=== PATIENT | male | born 1975 | race Caucasian/White ===

== ENCOUNTER 2017-08-26 18:54 | Emergency (ER) | payer OTHER ==
[~2017-08-26] VITALS: Ht 198.1 cm; Wt 101.5 kg
[2017-08-26 18:54] VITALS: TEMP 36.5; Ht 198.1 cm; Wt 101.5 kg
[~2017-08-26 18:54] MED LIST: ADAL40KI SC
[2017-08-26 19:52] LABS: BASO % 0.2 %; BASO ABS # 0.02 K/uL (0-0.2); EOS % 1.5 %; EOS ABS # 0.13 K/uL (0-0.5); HEMATOCRIT 44.3 % (42-52); HEMOGLOBIN 15.4 g/dL (14.0-18.0); IG# 0.01 K/uL (0.00-0.02); LYMPH ABS # 3.36 K/uL (1.2-3.4); MEAN CELL VOLUME 86.7 fL (80-100); MEAN CORPUSCULAR HEMOGLOBIN 30.1 pg (25-34); MEAN CORPUSCULAR HGB CONC 34.8 g/dl (32-36); MEAN PLATELET VOLUME 10.7 fL (7.4-10.4); MONO % 10.6 %; MONO ABS # 0.89 K/uL (0.11-0.59); NEUT % 47.6 %; NEUT ABS # 3.98 K/uL (1.4-6.5); PLATELET COUNT 199 K/uL (130-400); RED CELL DISTRIBUTION WIDTH SD 41.8 fL (36.4-46.3); WHITE BLOOD COUNT 8.39 K/uL (4.8-10.8)
--- NOTE | 2017-08-26 20:06 | DIAGNOSTIC IMAGING REPORT ---
CHEST 1 VW FRONT-NOT PORTABLE CLINICAL HISTORY: Atypical chest pain COMPARISON STUDY: 07/24/2011 FINDINGS: The cardiac and mediastinal contours are normal. There is no evidence of focal pulmonary consolidation. There is no evidence of failure. No pleural effusions are visualized.[ IMPRESSION: No active disease in the chest. Electronically signed by: Houston Saini M.D. 08/26/2017 8:04 PM Dictated Date/Time: 08/26/2017 8:04 PM
--- NOTE | 2017-08-26 20:07 | DIAGNOSTIC IMAGING REPORT ---
L HIP UNILATERAL 2 VIEWS CLINICAL HISTORY: left hip pain COMPARISON: None. DISCUSSION: No acute fractures are visualized. There are moderate osteophytic changes with acetabular spurring. There are 2 nonspecific left pelvic basin calcifications. IMPRESSION: 1. No acute fractures 2. Mild degenerative change 3. Nonspecific left pelvic basin calcifications. In the absence of ureteral colic these likely represent phleboliths Electronically signed by: Houston Saini M.D. 08/26/2017 8:05 PM Dictated Date/Time: 08/26/2017 8:04 PM
[2017-08-26 20:20] LABS: ALKALINE PHOSPHATASE 68 U/L (45-117); ALT/SGPT 26 U/L (12-78); AST/SGOT 17 U/L (15-37); BLOOD UREA NITROGEN 19 mg/dl (7-18); CARBON DIOXIDE 30 mmol/L (21-32); CREATININE 1.11 mg/dl (0.60-1.40); GLUCOSE 83 mg/dl (70-99); POTASSIUM 4.3 mmol/L (3.5-5.1); SODIUM 140 mmol/L (136-145); TOTAL PROTEIN 7.4 gm/dl (6.4-8.2)
[2017-08-26 20:39] VITALS: BP 117/66
--- NOTE | 2017-08-26 20:58 | EMERGENCY ROOM VISIT NOTE ---
History First contact with patient: 19:10 Chief Complaint: CHEST PAIN Stated Complaint: CHEST PAIN Nursing Triage Summary: Pt complains of intermittent chest pain for months. Pt denies anything different today but wants to get it checked out. Pt also wants to get his left hip checked out. Denies any injury. History of Present Illness The patient is a 42 year old male who presents to the Emergency Room with multiple complaints. The patient states that he has had left-sided nosebleeds for "a while." He states that these occur in the morning but stop once he blows his nose. He did have one nosebleed in the afternoon. He states this is a very small amount of blood when it occurs. The patient also states he has had pain in his left hip for the past 3 weeks. This morning it was a burning pain and he rates the discomfort a 5/10. The pain is worsened with movements but is okay with walking. 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 He has tried stretching but this did not help his pain. Additionally, the patient states he has had chest pains for the past 5 months. These occur a few times every day. The pain is located across the center of his chest and he is unable to describe the quality of the pain. The patient states the pain is mild and usually lasts for a few seconds. He does have a history of a collapsed lung 15-20 years ago and states he needed a chest tube for this. He states this occurred spontaneously. He denies any cardiac history. He is a smoker. He denies recent travel or prolonged immobilization. He does report a family history of heart disease in his mother at age 60. The patient takes medication for his psoriasis but is otherwise healthy. He denies fever/chills, cough or shortness of breath. Review of Systems A complete 10 point review of systems was reviewed with the patient with pertinent positives and negatives as per history of present illness. All else were negative. Past Medical/Surgical History Medical Problems: (1) Psoriasis Family History Heart disease Social History Smoking Status: Current Every Day Smoker Current/Historical Medications Scheduled Adalimumab (Humira Pen), 0.8 ML SC [id number] Multiple Vitamin (Multivitamin), 1 TAB PO DAILY Physical Exam Vital Signs Date Time Temp Pulse Resp B/P (MAP) Pulse Ox O2 Delivery O2 Flow Rate FiO2 08/26/17 21:05 70 16 95 08/26/17 20:39 77 14 117/66 96 Room Air 08/26/17 18:54 36.5 82 16 139/86 96 Room Air Physical Exam VITALS: Vitals are noted on the nurse's note and reviewed by myself. Vital signs stable. GENERAL: This is a 42-year-old male, in no acute distress, nondiaphoretic, well- developed well-nourished. SKIN: The skin was without rashes. EARS: External auditory canals clear, tympanic membranes pearly danielson without erythema or effusion bilaterally. EYES: Pupils equal round and reactive to light and accommodation. NOSE: Nasal mucosa is slightly inflamed bilaterally, left greater than right. MOUTH: Mucous membranes moist. NECK: Supple without nuchal rigidity. HEART: Regular rate and rhythm without murmurs gallops or rubs. LUNGS: Clear to auscultation bilaterally without wheezes, rales or rhonchi. ABDOMEN: Positive bowel sounds x 4. Soft, nontender to palpation. MUSCULOSKELETAL: Full range of motion of the left hip. No significant tenderness to palpation of the left hip. NEURO: Patient was alert and oriented to person place and time. Medical Decision & Procedures ER Provider Diagnostic Interpretation: CHEST 1 VW FRONT-NOT PORTABLE FINDINGS: The cardiac and mediastinal contours are normal. There is no evidence of focal pulmonary consolidation. There is no evidence of failure. No pleural effusions are visualized.[ IMPRESSION: No active disease in the chest. L HIP UNILATERAL 2 VIEWS DISCUSSION: No acute fractures are visualized. There are moderate osteophytic changes with acetabular spurring. There are 2 nonspecific left pelvic basin calcifications. IMPRESSION: 1. No acute fractures 2. Mild degenerative change 3. Nonspecific left pelvic basin calcifications. In the absence of ureteral colic these likely represent phleboliths Laboratory Results 08/26/17 19:36 Red Blood Count 5.11, Mean Corpuscular Volume 86.7, Mean Corpuscular Hemoglobin 30.1, Mean Corpuscular Hemoglobin Concent 34.8, Mean Platelet Volume 10.7, Neutrophils (%) (Auto) 47.6, Lymphocytes (%) (Auto) 40.0, Monocytes (%) (Auto) 10.6, Eosinophils (%) (Auto) 1.5, Basophils (%) (Auto) 0.2, Neutrophils # (Auto ) 3.98, Lymphocytes # (Auto) 3.36, Monocytes # (Auto) 0.89, Eosinophils # (Auto ) 0.13, Basophils # (Auto) 0.02 08/26/17 19:36 Test 08/26/17 19:36 White Blood Count 8.39 K/uL (4.8-10.8) Red Blood Count 5.11 M/uL (4.7-6.1) Hemoglobin 15.4 g/dL (14.0-18.0) Hematocrit 44.3 % (42-52) Mean Corpuscular Volume 86.7 fL (80-100) Mean Corpuscular Hemoglobin 30.1 pg (25-34) Mean Corpuscular Hemoglobin Concent 34.8 g/dl (32-36) Platelet Count 199 K/uL (130-400) Mean Platelet Volume 10.7 fL (7.4-10.4) Neutrophils (%) (Auto) 47.6 % Lymphocytes (%) (Auto) 40.0 % Monocytes (%) (Auto) 10.6 % Eosinophils (%) (Auto) 1.5 % Basophils (%) (Auto) 0.2 % Neutrophils # (Auto) 3.98 K/uL (1.4-6.5) Lymphocytes # (Auto) 3.36 K/uL (1.2-3.4) Monocytes # (Auto) 0.89 K/uL (0.11-0.59) Eosinophils # (Auto) 0.13 K/uL (0-0.5) Basophils # (Auto) 0.02 K/uL (0-0.2) RDW Standard Deviation 41.8 fL (36.4-46.3) RDW Coefficient of Variation 13.0 % (11.5-14.5) Immature Granulocyte % (Auto) 0.1 % Immature Granulocyte # (Auto) 0.01 K/uL (0.00-0.02) Anion Gap 5.0 mmol/L (3-11) Est Creatinine Clear Calc Drug Dose 114.3 ml/min Estimated GFR () 95.8 Estimated GFR (Non- 82.6 BUN/Creatinine Ratio 17.1 (10-20) Calcium Level 9.0 mg/dl (8.5-10.1) Total Bilirubin 0.4 mg/dl (0.2-1) Aspartate Amino Transf (AST/SGOT) 17 U/L (15-37) Alanine Aminotransferase (ALT/SGPT) 26 U/L (12-78) Alkaline Phosphatase 68 U/L (45-117) Troponin I < 0.015 ng/ml (0-0.045) Total Protein 7.4 gm/dl (6.4-8.2) Albumin 4.0 gm/dl (3.4-5.0) Globulin 3.4 gm/dl (2.5-4.0) Albumin/Globulin Ratio 1.2 (0.9-2) Thyroid Stimulating Hormone (TSH) 0.612 uIu/ml (0.300-4.500) ECG Per My Interpretation Indication: chest pain Rate (beats per minute): 70 Rhythm: sinus with SA Findings: no acute ischemic change, no ectopy Change: no significant change Medical Decision Differential diagnosis includes acute coronary syndrome, pulmonary embolism, pneumothorax, pericarditis, myocarditis, endocarditis, anxiety, musculoskeletal pain, GERD, costochondritis, pneumonia, trochanteric bursitis, arthritis, tendinitis, among others. The patient is a 42-year-old male who presents today complaining of pain intermittent chest pain, daily nosebleeds and left hip pain. Labs revealed no leukocytosis, anemia, thrombocytopenia or concerning electrolyte abnormalities. Troponin was not elevated. EKG shows a normal sinus rhythm. Patient's chest pain does not seem to be cardiac in nature. I did recommend starting a PPI as this may be secondary to GERD/gastritis. X-ray of the left hip shows no acute fractures, but does show some evidence of arthritis. Patient was advised on conservative measures and will follow up with his PCP for further evaluation of this. He was advised to use a saline nasal spray for his nosebleeds. I recommended PCP follow-up within 1-2 weeks. Based on the patient's presentation and work up, I feel the patient is stable for outpatient treatment. The patient was educated to return to the emergency department for any worsening of their current condition or new/concerning symptoms. He will follow up with his PCP. Medication Reconcilliation Current Medication List: was personally reviewed by me Blood Pressure Screening Patient's blood pressure: Normal blood pressure Impression Primary Impression: Intermittent chest pain Additional Impressions: Left hip pain Frequent nosebleeds Departure Information Dispostion Home / Self-Care Condition GOOD Referrals No Doctor, Assigned (PCP) Patient Instructions My [facility] Additional Instructions You should begin using a saline nasal spray in both nostrils daily to help moisten the nasal tissue. You may begin a medication like Prilosec [id number], as acid reflux may be contributing to her symptoms. You may try anti-inflammatories such as Aleve or ibuprofen for your hip pain. You may also continue to do stretches for your hip. Return to the emergency department with any worsening or new/concerning symptoms. Contact her PCP to schedule follow-up in the next 1-2 weeks. Problem Qualifiers
[2017-08-26 21:05] VITALS: PULSE 70; O2SAT 95
[2017-08-26] MEDS ORDERED: MULTTAB58 PO (22:19)
== END 2017-08-26 21:05 | disposition home or self-care (01) ==
LOC: C.EDB 18:54 → C.EDC 21:05
DX: R07.9 Chest pain, unspecified (principal); M25.552 Pain in left hip; R04.0 Epistaxis; F17.200 Nicotine dependence, unspecified, uncomplicated

== ENCOUNTER 2021-08-20 19:01 | Inpatient (IN) ==
--- NOTE | 2021-08-20 20:02 | Emergency Department Note ---
History of Present Illness General Chief complaint: Toe Injury/Pain Stated complaint: BUMP ON L 4TH TOE, PAINFUL, HARD TO WEAR SHOES Time Seen by Provider: 08/20/21 19:55 History of Present Illness Maximum Pain Intensity: 8 This is a 46-year-old male that presents to the emergency department via private vehicle with complaints of "bump on left fourth toe, painful, hard to wear shoes". Patient notes a history of surgeries to the bilateral feet. He notes that the left foot, specifically the dorsal aspect of the left fourth toe has been painful over the past few months. He notes that while at [employer] he believes he may have bumped or kicked the area accidentally. He then notes that a an erythematous and edematous region developed to the dorsal aspect of the left fourth toe. He is concerned as he notes that there are screws/hardware near this area. He notes that his orthopedic surgeon previously was Dr. East. The patient has scheduled an orthopedic follow-up with Dr. Castellanos but notes that this is not until sometime in November. The patient denies any fevers or chills. He denies any drainage from the area. Current pain 11/18. 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 Sensorineural hearing loss (SNHL) of left ear with unrestricted hearing of right ear Surgical History History of appendectomy History of foot surgery LEFT - x2 , RIGHT - x1 History of hand surgery RIGHT History of lung surgery collapsed lung - LEFT (approx 10 years ago- no residual breathing issues) History of surgery Marsupialization of left submandibular duct with removal of left sialolith- 11/11/20 History of tonsillectomy Status post wisdom tooth extraction Family History Mother Depression Heart disease Other No family history of allergies No family history of bleeding disorder Denies family history of Hearing loss Cancer Hypertension Stroke Asthma Social History Smoking Status: Current every day smoker Tobacco Type: Cigarettes Years Smoked: 20; Cigarettes Per Day: 6-8; Second Hand Exposure: No; Hx Alcohol Use: Yes Alcohol type: beer Hx Substance Use: No Preferred Language: Hungarian Communication Ability: Effective Visual Impairment: No Limitations Otolaryngologist Required: No Beliefs That Will Affect Care: None marital status: Single Current Living Situation: Alone Current Living Situation Comment: lives alone but does stay with his step father at times current occupational status: disabled Other Information That Helps Us Care for You: No Feels Safe at Home: Yes Safety Concerns: Feels Safe At This Time Physical Activity Frequency: 3-4 Times per Week Assistive Devices: None Review of Systems A total of 10 systems reviewed and were otherwise negative Physical Exam Vital Signs Vital Signs - 24 hr 08/20/21 19:07 08/20/21 23:11 Temperature 37.3 C Temperature Source Temporal Artery Scan Pulse Rate 81 Pulse Rate [Finger] 61 Respiratory Rate 16 18 Respiratory Effort / Characteristics Non-Labored Respiratory Depth Normal Respiratory Pattern Regular Blood Pressure 122/82 Blood Pressure [Right Arm] 133/81 Blood Pressure Mean 95 Blood Pressure Mean [Right Arm] 98 Blood Pressure Position Sitting Pulse Oximetry 99 97 Oxygen Delivery Method Room Air Room Air Sepsis Recent Fever Within 48 Hours No Sepsis New/Unexplained Change in Mental Status No Sepsis Action Taken by Nursing No Action Required VITAL SIGNS - Vital signs and nursing notes were reviewed. Stable and afebrile. GENERAL -46-year-old male appearing his stated age who is in no acute distress. Communicates well with provider and answers questions appropriately. SKIN -there is pustule appearing region overlying the dorsal aspect of the left fourth toe overlying the PIP joint. This is just under 1 cm in diameter and is slightly raised. In the center of this there is a 2 mm whitish/yellowish region suspicious for purulence. There is no active drainage at the present time. HEAD - NC/AT. EYES - Sclera anicteric. LUNGS - Chest wall symmetric without accessory muscle use, intercostals retractions, or central cyanosis. Normal vesicular breath sounds CTA B/L. No wheezes, rales, or rhonchi appreciated. CARDIAC - RRR with S1/S2. No murmur, rubs, or gallops appreciated. EXTREMITIES - No clubbing or peripheral cyanosis. Skin as above. There is mild tenderness palpation overlying the left fourth toe region. Also minor tenderness overlying the plantar aspect of the left foot MTP joint regions. No fluctuance or purulence to this region. He is neurovascularly intact in the left lower extremity. No deficits. Cap refill within normal limits. Course Administered Medications Vancomycin HCl 2,000 mg/ (Sodium Chloride) 540 mls @ 200 mls/hr IV NOW ONE; Protocol Stop: 08/21/21 04:11 Last Admin: 08/21/21 01:36 Dose: 200 mls/hr Documented by: [id number] Cefepime HCl 2,000 mg/ Syringe 20 mls @ 5 mls/min IV Q8H DAVID; Protocol Stop: 10/02/21 01:59 Last Admin: 08/21/21 01:31 Dose: 5 mls/min Documented by: [id number] Medical Decision Making Laboratory Data Result diagrams: 08/20/21 21:00 08/20/21 21:00 Lab Results 08/20/21 08/20/21 08/20/21 Range/Units 21:00 21:00 21:00 WBC 10.13 (4.8-10.8) K/uL RBC 5.00 (4.7-6.1) M/uL Hgb 15.0 (14.0-18.0) g/dL Hct 44.8 (42-52) % MCV 89.6 (80-100) fL MCH 30.0 (25-34) pg MCHC 33.5 (32-36) g/dL RDW Std Deviation 44.3 (36.4-46.3) fL RDW Coeff of Fidel 13.3 (11.5-14.5) % Plt Count 243 (130-400) K/uL MPV 11.3 H (7.4-10.4) fL Immature Gran % (Auto) 0.2 % Neut % (Auto) 45.6 % Lymph % (Auto) 44.3 % [place] % (Auto) 8.1 % Eos % (Auto) 1.7 % Baso % (Auto) 0.1 % Neut # (Auto) 4.62 (1.4-6.5) K/uL Lymph # (Auto) 4.49 H (1.2-3.4) K/uL [place] # (Auto) 0.82 H (0.11-0.59) K/uL Eos # (Auto) 0.17 (0-0.5) K/uL Baso # (Auto) 0.01 (0-0.2) K/uL Immature Gran # (Auto) 0.02 (0.00-0.02) K/uL ESR 8 (0-15) mm/hr Sodium 137 (136-145) mmol/L Potassium 4.3 (3.5-5.1) mmol/L Chloride 103 (98-107) mmol/L Carbon Dioxide 29 (21-32) mmol/L Anion Gap 5 (3-11) BUN 27 H (6-23) mg/dl Creatinine 1.07 (0.6-1.4) mg/dl Est Cr Clr Drug Dosing 113.9 ml/min Est GFR ( Amer) 97.3 ml/min Est GFR (Non-Af Amer) 84.0 ml/min BUN/Creatinine Ratio 25.2 H (10-20) Glucose 95 (70-99(Fasting)) mg/dl Lactate (0.4-2.0) mmol/L Calcium 9.7 (8.5-10.1) mg/dl Total Bilirubin 0.4 (0.2-1.0) mg/dl AST 18 (13-39) U/L ALT 16 (7-52) U/L Alkaline Phosphatase 63 (34-104) U/L C-Reactive Protein < 0.50 (0-0.5) mg/dl Total Protein 7.2 (6.0-8.3) gm/dl Albumin 4.7 (3.4-5.0) gm/dl Globulin 2.5 (2.5-4.0) gm/dl Albumin/Globulin Ratio 1.9 (0.9-2) Procalcitonin (0-0.5) ng/ml 08/20/21 08/20/21 Range/Units 21:00 21:00 WBC (4.8-10.8) K/uL RBC (4.7-6.1) M/uL Hgb (14.0-18.0) g/dL Hct (42-52) % MCV (80-100) fL MCH (25-34) pg MCHC (32-36) g/dL RDW Std Deviation (36.4-46.3) fL RDW Coeff of Fidel (11.5-14.5) % Plt Count (130-400) K/uL MPV (7.4-10.4) fL Immature Gran % (Auto) % Neut % (Auto) % Lymph % (Auto) % [place] % (Auto) % Eos % (Auto) % Baso % (Auto) % Neut # (Auto) (1.4-6.5) K/uL Lymph # (Auto) (1.2-3.4) K/uL [place] # (Auto) (0.11-0.59) K/uL Eos # (Auto) (0-0.5) K/uL Baso # (Auto) (0-0.2) K/uL Immature Gran # (Auto) (0.00-0.02) K/uL ESR (0-15) mm/hr Sodium (136-145) mmol/L Potassium (3.5-5.1) mmol/L Chloride (98-107) mmol/L Carbon Dioxide (21-32) mmol/L Anion Gap (3-11) BUN (6-23) mg/dl Creatinine (0.6-1.4) mg/dl Est Cr Clr Drug Dosing ml/min Est GFR ( Amer) ml/min Est GFR (Non-Af Amer) ml/min BUN/Creatinine Ratio (10-20) Glucose (70-99(Fasting)) mg/dl Lactate 0.6 (0.4-2.0) mmol/L Calcium (8.5-10.1) mg/dl Total Bilirubin (0.2-1.0) mg/dl AST (13-39) U/L ALT (7-52) U/L Alkaline Phosphatase (34-104) U/L C-Reactive Protein (0-0.5) mg/dl Total Protein (6.0-8.3) gm/dl Albumin (3.4-5.0) gm/dl Globulin (2.5-4.0) gm/dl Albumin/Globulin Ratio (0.9-2) Procalcitonin < 0.05 (0-0.5) ng/ml Imaging Data Radiologist's Impression: Foot X-Ray 08/20/21 20:02 XR foot LT min 3V routine CLINICAL HISTORY: L 4th toe, dorsal region, Pain and edema. Pustule in the fourth toe. TECHNIQUE: 3 views of the left foot were obtained. Comparison: None available at the time of this dictation. FINDINGS: There is a lucency in the fourth digit proximal interphalangeal joint with apparent erosion of the proximal and middle phalanges. Surgical screws are seen in multiple metatarsals and the first digit proximal phalanx. Degenerative changes are seen at multiple joints. Soft tissue swelling is seen most prominently in the fourth digit. IMPRESSION: Lucency in the fourth digit interphalangeal joint with proximal and distal erosion concerning for septic arthritis with osteomyelitis. ACT 112: Negative or not required by law. Electronically signed by: Redd Giron M.D. 08/20/2021 8:25 PM MRI LEFT FOOT : Abnormal marrow signal within the fourth middle and distal phalanges suspicious for acute osteomyelitis. Radiologist: Hernandez Ybarra MD Study ready at 22:43 and initial results transmitted at 23:16 MDM Narrative Patient was seen and evaluated as above in room D01. Review was performed of nursing notes and vital signs. I did review pertinent previous visits and patient history. After obtaining a thorough history and physical examination the above work up was performed. Patient presents to us today with several months of erythema and edema to the dorsal aspect of the left fourth toe. He clinically appears well and is nontoxic. Presentation concerning for localized infection to the left fourth toe. He notes this has been ongoing for several months. Patient notes that he currently is on Humira. He notes a surgical history to bilateral feet with hardware. Options of care were discussed with the patient. Initially I started with an x- ray of the left fourth toe. There is a lucency observed to this area and when clinically correlated with his presentation there is concern for potential deeper infection. I discussed this with the on-call orthopedist, Dr. Severino. We agreed upon proceeding with MRI of the area and IV antibiotics with medical admission. At this time we agreed to hold off from any I&D of the area here in the emergency department pending further work-up. MRI was obtained. This confirms the suspicion noting abnormal marrow signal within the left fourth middle and distal phalanges suspicious for acute osteomyelitis. With the patient being on Humira and findings concerning for osteomyelitis I do believe that at least initially that the patient will be best served through inpatient management. Case discussed with the hospitalist. Please refer to further documentation regarding his stay. Antibiotics ordered by the hospitalist service. No leukocytosis or concerning anemia. No emergent metabolic disturbance. Inflammatory markers normal. COVID test negative. Patient amenable to hospitalization and plan of care. In the evaluation and treatment of this patient the following differential diagnoses were entertained: Osteomyelitis, fracture, dislocation, subluxation, c ontusion, abscess, among others. Impression & Plan Osteomyelitis of fourth toe of left foot Discharge Plan Visit Data Chief Complaint: Toe Injury/Pain Stated Complaint: BUMP ON L 4TH TOE, PAINFUL, HARD TO WEAR SHOES ED Provider: [facility] Midlevel Provider: Miguel Lopez Discharge Problem: Osteomyelitis of fourth toe of left foot Patient Disposition: Admitted As Inpatient Condition: Good Discharge Instructions Interventions: ED Discharge Assessment Last Done: 08/21/21 00:05
--- NOTE | 2021-08-20 20:27 | XRay Report ---
XR foot LT min 3V routine CLINICAL HISTORY: L 4th toe, dorsal region, Pain and edema. Pustule in the fourth toe. TECHNIQUE: 3 views of the left foot were obtained. Comparison: None available at the time of this dictation. FINDINGS: There is a lucency in the fourth digit proximal interphalangeal joint with apparent erosion of the pr oximal and middle phalanges. Surgical screws are seen in multiple metatarsals and the first digit pro ximal phalanx. Degenerative changes are seen at multiple joints. Soft tissue swelling is seen most pr ominently in the fourth digit. IMPRESSION: Lucency in the fourth digit interphalangeal joint with proximal and distal erosion concerning for sep tic arthritis with osteomyelitis. ACT 112: Negative or not required by law. Electronically signed by: Redd Giron M.D. 08/20/2021 8:25 PM
[2021-08-20 21:34] LABS: Alanine Aminotransferase 16 U/L (7-52); Albumin Globulin Ratio 1.9 (0.9-2); Albumin Level 4.7 gm/dl (3.4-5.0); Alkaline Phosphatase 63 U/L (34-104); Anion Gap 5 (3-11); Aspartate Aminotransferase 18 U/L (13-39); BUN Creatinine Ratio 25.2 (10-20); Bilirubin,Total 0.4 mg/dl (0.2-1.0); Blood Urea Nitrogen 27 mg/dl (6-23); C Reactive Protein < 0.50 mg/dl (0-0.5); Calcium 9.7 mg/dl (8.5-10.1); Carbon Dioxide 29 mmol/L (21-32); Chloride 103 mmol/L (98-107); Creatinine Clr Calc Pharmacy 113.9 ml/min; Est GFR (African American) 97.3 ml/min; Globulin 2.5 gm/dl (2.5-4.0); Glucose 95 mg/dl (70-99(Fasting)); Potassium 4.3 mmol/L (3.5-5.1); Sodium 137 mmol/L (136-145); Total Protein 7.2 gm/dl (6.0-8.3)
[2021-08-20 22:25] LABS: Basophils # (auto) 0.01 K/uL (0-0.2); Basophils % (auto) 0.1 %; Eosinophils # (auto) 0.17 K/uL (0-0.5); Eosinophils % (auto) 1.7 %; Hematocrit (blood only) 44.8 % (42-52); Immature Granulocytes # (auto) 0.02 K/uL (0.00-0.02); Immature Granulocytes % (auto) 0.2 %; Lymphocytes # (auto) 4.49 K/uL (1.2-3.4); Lymphocytes % (auto) 44.3 %; Mean Corpuscular Hgb Conc 33.5 g/dL (32-36); Mean Corpuscular Volume 89.6 fL (80-100); Mean Platelet Volume 11.3 fL (7.4-10.4); Monocytes # (auto) 0.82 K/uL (0.11-0.59); Monocytes % (auto) 8.1 %; Neutrophils # (auto) 4.62 K/uL (1.4-6.5); Neutrophils % (auto) 45.6 %; Platelet Count 243 K/uL (130-400); RDW Coefficient of Variation 13.3 % (11.5-14.5); RDW Standard Deviation 44.3 fL (36.4-46.3); White Blood Count 10.13 K/uL (4.8-10.8)
--- NOTE | 2021-08-20 23:13 | History & Physical Report ---
Date of Service August 20, 2021 Assessment & Plan (1) Osteomyelitis of fourth toe of left foot: Plan: Osteomyelitis of fourth toe of left foot/history of foot surgery- X-ray shows septic arthritis with probable osteomyelitis MRI results pending Placed on vancomycin IV and cefepime IV Consult orthopedic surgery Acetaminophen 6-milligrams p.o. every 6 hours as needed mild pain or fever (2) Psoriasis: Plan: On immunosuppressive therapy therapy adalimumab in the outpatient setting Likely contributing to progression of above infection History of Present Illness Chief Complaint: The patient presents to the emergency department with complaint of worsening painful bump on left fourth toe, making it difficult to wear shoes and to ambulate Primary Care Provider: Kalani Woodson MD The patient is a 46-year-old male with a past medical history including SNHL left ear, sialoadenitis of submandibular gland, and psoriasis. He reports having multiple surgeries on his left foot, and over the past month has noted worsening pain over a painful bump on his left fourth toe. X-ray in the emergency department suggested septic arthritis with osteomyelitis. Allergies Allergy/AdvReac Type Severity Reaction Status Date / Time No Known Drug Allergies Allergy Unknown Verified 04/01/21 13:56 Home Medications Medication Instructions Recorded Confirmed Type adalimumab 40 mg/0.8 mL See Rx Instructions SUBCUT .COMPLEX 05/26/20 04/01/21 History subcutaneous syringe kit (Humira) multivitamin 1 tab PO DAILY 05/26/20 04/01/21 History Past Med/Surg History Medical History Psoriasis Sensorineural hearing loss (SNHL) of left ear with unrestricted hearing of right ear Surgical History History of appendectomy History of foot surgery History of hand surgery History of lung surgery History of surgery History of tonsillectomy Status post wisdom tooth extraction Family History Mother Depression Heart disease Other No family history of allergies No family history of bleeding disorder Denies family history of Hearing loss Cancer Hypertension Stroke Asthma Social History Smoking Status: Current every day smoker Tobacco Type: Cigarettes Years Smoked: 20; Cigarettes Per Day: 6-8; Second Hand Exposure: No; Hx Alcohol Use: Yes Alcohol type: beer Hx Substance Use: No Preferred Language: Mexican Communication Ability: Effective Visual Impairment: No 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: No Beliefs That Will Affect Care: None marital status: Single Current Living Situation: Alone Current Living Situation Comment: lives alone but does stay with his step father at times current occupational status: disabled Other Information That Helps Us Care for You: No Feels Safe at Home: Yes Safety Concerns: Feels Safe At This Time Physical Activity Frequency: 3-4 Times per Week Assistive Devices: None Review of Systems Review of Systems: The patient denies chest pain, palpitations, shortness of breath, dyspnea on exertion, cough, sore throat, fevers, chills, sweats, weight change, fatigue, nausea, vomiting, diarrhea , constipation, abdominal pain, pelvic pain, blood in urine or stool, dysuria, urinary frequency or urgency, lightheadedness, dizziness, headache, memory loss, loss of consciousness, abnormal bruising or bleeding, focal or generalized weakness, numbness or tingling in arms, generalized arthralgias or myalgias, back or neck pain, or night sweats. The review of systems is otherwise negative other than for that already noted above, and at least 10 systems have been reviewed. Physical Exam Physical Exam: The patient is awake, alert and oriented 3, well developed and well nourished, normocephalic and atraumatic, lying in bed and in no acute distress. HEENT--PERRL, EOMI, mucous membranes and oropharynx normal. Neck--supple. No JVD. No bruits. Thyroid normal, trachea midline, no adenopathy. Heart--normal S1 and S2. No murmurs, rubs or gallops. Lungs--clear bilaterally, no respiratory distress, no accessory muscle use. Abdomen--normal bowel sounds and soft. Nontender. Nondistended, no hernias or masses, no organomegaly. Extremities--no cyanosis or clubbing. No edema. Raised lesion on left fourth proximal/distal interphalangeal joint Dermatologic--normal skin turgor, normal color, no abnormal lymph nodes Neurologic--cranial nerves II through XII grossly intact. Rheumatologic--normal range of motion. Psychiatric--normal affect. Results & Data Results & Data ([facility]) Vital Signs (Past 12 Hours) Vital Signs Temp Pulse Pulse Resp BP BP Pulse Ox 08/20/21 23:11 61 18 133/81 97 08/20/21 19:07 37.3 C 81 16 122/82 99 Laboratory Results Laboratory Results WBC 10.13 K/uL (4.8-10.8) 08/20/21 21:00 RBC 5.00 M/uL (4.7-6.1) 08/20/21 21:00 Hgb 15.0 g/dL (14.0-18.0) 08/20/21 21:00 Hct 44.8 % (42-52) 08/20/21 21:00 MCV 89.6 fL (80-100) 08/20/21 21:00 MCH 30.0 pg (25-34) 08/20/21 21:00 MCHC 33.5 g/dL (32-36) 08/20/21 21:00 RDW Std Deviation 44.3 fL (36.4-46.3) 08/20/21 21:00 RDW Coeff of Fidel 13.3 % (11.5-14.5) 08/20/21 21:00 Plt Count 243 K/uL (130-400) 08/20/21 21:00 MPV 11.3 fL (7.4-10.4) H 08/20/21 21:00 Immature Gran % (Auto) 0.2 % 08/20/21 21:00 Neut % (Auto) 45.6 % 08/20/21 21:00 Lymph % (Auto) 44.3 % 08/20/21 21:00 Bandera % (Auto) 8.1 % 08/20/21 21:00 Eos % (Auto) 1.7 % 08/20/21 21:00 Baso % (Auto) 0.1 % 08/20/21 21:00 Neut # (Auto) 4.62 K/uL (1.4-6.5) 08/20/21 21:00 Lymph # (Auto) 4.49 K/uL (1.2-3.4) H 08/20/21 21:00 Bandera # (Auto) 0.82 K/uL (0.11-0.59) H 08/20/21 21:00 Eos # (Auto) 0.17 K/uL (0-0.5) 08/20/21 21:00 Baso # (Auto) 0.01 K/uL (0-0.2) 08/20/21 21:00 Immature Gran # (Auto) 0.02 K/uL (0.00-0.02) 08/20/21 21:00 ESR 8 mm/hr (0-15) 08/20/21 21:00 Sodium 137 mmol/L (136-145) 08/20/21 21:00 Potassium 4.3 mmol/L (3.5-5.1) 08/20/21 21:00 Chloride 103 mmol/L (98-107) 08/20/21 21:00 Carbon Dioxide 29 mmol/L (21-32) 08/20/21 21:00 Anion Gap 5 (3-11) 08/20/21 21:00 BUN 27 mg/dl (6-23) H 08/20/21 21:00 Creatinine 1.07 mg/dl (0.6-1.4) 08/20/21 21:00 Est Cr Clr Drug Dosing 113.9 ml/min 08/20/21 21:00 Est GFR ( Amer) 97.3 ml/min 08/20/21 21:00 Est GFR (Non-Af Amer) 84.0 ml/min 08/20/21 21:00 BUN/Creatinine Ratio 25.2 (10-20) H 08/20/21 21:00 Glucose 95 mg/dl (70-99(Fasting)) 08/20/21 21:00 Lactate 0.6 mmol/L (0.4-2.0) 08/20/21 21:00 Calcium 9.7 mg/dl (8.5-10.1) 08/20/21 21:00 Total Bilirubin 0.4 mg/dl (0.2-1.0) 08/20/21 21:00 AST 18 U/L (13-39) 08/20/21 21:00 ALT 16 U/L (7-52) 08/20/21 21:00 Alkaline Phosphatase 63 U/L (34-104) 08/20/21 21:00 C-Reactive Protein < 0.50 mg/dl (0-0.5) 08/20/21 21:00 Total Protein 7.2 gm/dl (6.0-8.3) 08/20/21 21:00 Albumin 4.7 gm/dl (3.4-5.0) 08/20/21 21:00 Globulin 2.5 gm/dl (2.5-4.0) 08/20/21 21:00 Albumin/Globulin Ratio 1.9 (0.9-2) 08/20/21 21:00 Procalcitonin < 0.05 ng/ml (0-0.5) 08/20/21 21:00 SARS-CoV-2, RNA, NAAT NEGATIVE (NEGATIVE) 08/20/21 Unknown Impressions Foot X-Ray 08/20/21 20:02 XR foot LT min 3V routine CLINICAL HISTORY: L 4th toe, dorsal region, Pain and edema. Pustule in the fourth toe. TECHNIQUE: 3 views of the left foot were obtained. Comparison: None available at the time of this dictation. FINDINGS: There is a lucency in the fourth digit proximal interphalangeal joint with apparent erosion of the proximal and middle phalanges. Surgical screws are seen in multiple metatarsals and the first digit proximal phalanx. Degenerative changes are seen at multiple joints. Soft tissue swelling is seen most prominently in the fourth digit. IMPRESSION: Lucency in the fourth digit interphalangeal joint with proximal and distal erosion concerning for septic arthritis with osteomyelitis. ACT 112: Negative or not required by law. Electronically signed by: Redd Giron M.D. 08/20/2021 8:25 PM Code Status & VTE Plan Code Status Full code VTE Prophylaxis Plan VTE Prophylaxis will be ordered: Yes PG Care Time/CCT Total # of Minutes Spent Total Time Spent with Patient: Total time spent is greater than 50% in coordination of care (as documented) at patient's floor/unit and/or counseling patient: Coding Level of Care Code INT OBSERVATION CARE 70M LVL 3 Diagnoses Osteomyelitis of fourth toe of left foot M86.9 Psoriasis L40.9
[2021-08-21] MEDS ORDERED: ONDANSETRON INJ 2 MG/ML 2 ML VIAL IV PRN (00:32)
[2021-08-21] MEDS ORDERED: VANCOMYCIN CONSULT ACTIVE PRN (00:32)
[2021-08-21] MEDS ORDERED: VANCOMYCIN HCL 2,000 MG in SODIUM CHLORIDE 0.9% 500 ML IV ONE (01:30)
[2021-08-21] MEDS: CEFEPIME 2,000 MG in SYRINGE 0 ML IV SCH ×2 (01:31→10:00)
[2021-08-21] MEDS: VANCOMYCIN HCL 1,250 MG in SODIUM CHLORIDE 0.9% 250 ML IV SCH ×2 (08:28→20:13)
--- NOTE | 2021-08-21 09:19 | Pharmacy Report ---
Pharmacy Vanc AUC Short Note - Date of Service August 21, 2021 - Assessment & Plan Assessment 46 year old M receiving Vancomycin 1250 mg IV q12h for treatment of septic arthritis, probable L toe osteo. Blood cultures pending. Patient received Vancomycin loading dose 2000 mg (21 mg/kg) last night at 01:36 AM. Maintenance dose 1250 mg started this AM at 8:00. Day #1 of antimicrobial therapy. Plan Vancomycin * AUC/MAHNAZ is the preferred PK/PD target for vancomycin * AUC guided dosing is effective and associated with decreased risk of nephrotoxicity compared to traditional trough targets * Expect a trough level of 18 mg/L with current dosing of Vanco 1250 mg IV q12h. * This is predicted to achieve target AUC/MAHNAZ of 400-600 mg/L.hr and may be associated with a 14% risk of nephrotoxicity * Trough level ordered for 19:30 on 08/22/21. Pharmacy will continue to follow and will adjust dose/frequency as necessary. Thank you.
--- NOTE | 2021-08-21 11:36 | Magnetic Resonance Report ---
MR foot LT w/o con HISTORY: 46 years-old Male L 4th toe infection, possible osteomyelitis, subacute pain with soft tiss ue swelling of the left fourth toe. COMPARISON: Left foot radiographs of same day. TECHNIQUE: Multiplanar and multisequence MRI of the left foot was obtained without the use of IV cont rast. FINDINGS: Postoperative changes of the forefoot are noted. Micrometallic artifact from the screws within the fi rst through fourth metatarsal heads and first proximal phalanx limits the study. Extensive focal marrow edema with decreased T1 signal involves the fourth proximal distal phalanges. There is a 9 mm loculated T2 hyperintense cystic structure within the adjacent dorsal soft tissues williamson perficial to the middle phalanx. Mild to moderate marrow edema involves the third middle phalanx with moderate marrow edema involving the second middle phalanx. T1 marrow signal appears preserved within these distributions. Irregularity of the second through fifth interphalangeal joints redemonstrated which may be chronic versus postoperative. Mild marrow edema is also noted involving the fourth metat arsal neck with suggestion of a healing fracture. Mild to moderate soft tissue edema of the forefoot is most pronounced surrounding the third digit. Subcortical cystic changes of the second metatarsal h ead. The Lisfranc ligament is identified and appears intact. The imaged flexor and extensor tendons a re unremarkable. IMPRESSION: 1. Findings are suspicious for osteomyelitis involving the fourth middle and distal phalanges. 2. 9 mm loculated T2 hyperintense structure within the dorsal soft tissues is indeterminate. Correlat e clinically to exclude a postoperative fluid collection versus ganglion. Abscess considered less lik jon. 3. Marrow edema within the second and third middle phalanges with preserved T1 marrow signal may be p ostoperative or represent a reactive osteitis. Early changes of acute osteomyelitis could appear eladia larly. 4. Chronic postoperative changes as above. 5. Soft tissue edema of the forefoot. ACT 112: Negative or not required by law. The above report was generated using voice recognition software. It may contain grammatical, syntax o r spelling errors. Dictated: 08/21/2021 8:19 AM Transcribed: 08/21/2021 9:25 AM Emily [id number] [email or web address] Electronically signed by: Mike Ferrera M.D. 08/21/2021 11:34 AM
--- NOTE | 2021-08-21 17:06 | Hospitalist Progress Note ---
Date of Service August 21, 2021 Assessment & Plan (1) Osteomyelitis of fourth toe of left foot: Plan: -Osteomyelitis of fourth toe of left foot/history of foot surgery- -X-ray shows septic arthritis with probable osteomyelitis -MRI results showing evidence of osteomyelitis -Patient not likely to have Pseudomonas as a source of osteomyelitis, discontinue cefepime -Continue vancomycin until joint aspiration is performed and cultures can be grown -Consult orthopedic surgery, likely joint aspiration to be performed by them. -Acetaminophen 6-milligrams p.o. every 6 hours as needed mild pain or fever (2) Psoriasis: Plan: On immunosuppressive therapy therapy adalimumab in the outpatient setting Likely contributing to progression of above infection Admission and Anticipated Discharge Date Admission Date: August 20, 2021 Supervising Physician Co-Signing Physician Notes I personally examined the patient and verified all flowers points of history and exam, discussed case, and agree with decision making with Dr paris frias otherwise no complaints. Notes that he would prefer to see Dr. Hernandez actually scheduled to see him in the office anyway. 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 Vitals noted, in general he is awake and alert pleasant no distress. HEENT normocephalic atraumatic mucous membranes moist. Breathing unlabored no accessory muscle use good effort. Skin shows no rashes no pallor or icterusother than a pustule over the DIP joint of his fourth toe, tender, no other foot tenderness crepitus or erythema Septic arthritis/osteomyelitis fourth toerisks being prior foot surgeries, immune compromise from Humira. Likely gram-positivecan DC cefepime. Orthopedics evaluation regarding drainage/washout/etc. Likely to need a prolonged course of antibiotics. Otherwise as above Subjective Patient seen at bedside this morning. Patient denies any new symptoms or complaints at this time. There is some concern regarding osteomyelitis of the left fourth digit MRI pending at the time of interview, however, later reported that there is evidence of osteomyelitis now confirmed. Patient continues to feel well not having any systemic symptoms such as fevers, chills, chest pain, shortness of breath. Patient has no other concerns at this time. Review of Systems Review of Systems: All systems reviewed & are unremarkable except as noted in HPI & below Physical Exam Constitutional: WD/WN, vitals as above Eyes: PERRL, conjunctivae normal, anicteric sclerae Neck: trachea midline, no thyromegaly Respiratory: normal respiratory effort, lungs clear to auscultation Cardiovascular: RRR, no murmur, no edema Gastrointestinal (Abdomen): normal bowel sounds, soft, nontender, no hepatosplenomegaly Musculoskeletal: Head/Neck/Chest: normocephalic and head atraumatic Skin: + rash and + lesion 1 cm circumferential erythematous rash with a centralized ulcer at the DIP of the fourth digit on the left foot. Neurologic: moves all extremities Psychiatric: A+Ox3, euthymic affect Results & Data Results & Data ([facility]) Vital Signs (Past 12 Hours) Vital Signs Temp Pulse Resp BP Pulse Ox 08/21/21 15:20 36.5 C 55 L 16 107/70 97 08/21/21 13:52 36.5 C 52 L 18 112/69 97 08/21/21 07:22 36.5 C 45 L 16 94/62 L 97
--- NOTE | 2021-08-21 17:14 | Billing Data ---
Date of Service August 21, 2021 Coding Level of Care Code 11700 Subseq Obs Care Lvl 3
[2021-08-22] MEDS ORDERED: SODIUM CHLORIDE 0.9% 1000ML 1,000 ML IV SCH (06:00)
--- NOTE | 2021-08-22 06:47 | Anesthesiology Consultation ---
Date of Service August 22, 2021 Assessment & Plan Chart Review Chart Review: Acceptable Risk for Surgery and Patient NOT seen in Pre Admission Testing Consults Requested none ASA ASA3 Proposed Anesthesia Anesthesia Type: General History Surgery Operation Date: 08/22/21 08:45 Proposed Procedures p Incision and Drainage Left 4th toe Vs. Amputation(Left) - Murtaza Dina Prater MD s Amputation Toe(Left) - Murtaza Dina Prater MD Height/Weight Height: 6 ft 6 in Weight: 94.7 kg Allergies Allergy/AdvReac Type Severity Reaction Status Date / Time No Known Drug Allergies Allergy Unknown Verified 04/01/21 13:56 Medications Home Medications Medication Instructions Recorded Confirmed Last Taken adalimumab 40 mg/0.8 mL See Rx Instructions SUBCUT .COMPLEX 05/26/20 04/01/21 12/09/20 subcutaneous syringe kit (Humira) multivitamin 1 tab PO DAILY 05/26/20 04/01/21 12/14/20 Active Medications Generic Name Dose Route Start Last Admin Trade Name Freq PRN Reason Stop Dose Admin Vancomycin HCl 1,250 mg/ 275 mls @ 200 mls/hr 08/21/21 08:00 08/21/21 21:46 Sodium Chloride IV 10/02/21 07:59 Infused Q12H DAVID Infusion NPO Date Last Intake of Fluids: 08/21/21 Time Last Intake of Fluids: 23:59 Date Last Intake of Solids: 08/21/21 Time Last Intake of Solids: 23:59 Past Medical History Medical History Psoriasis 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 Sensorineural hearing loss (SNHL) of left ear with unrestricted hearing of right ear Exercise / Class Metabolic Activity III < 4 Walking/Shop/Light housework Past Family History Family History Mother Depression Heart disease Other No family history of allergies No family history of bleeding disorder Denies family history of Hearing loss Cancer Hypertension Stroke Asthma Past Surgical History Surgical History History of appendectomy History of foot surgery LEFT - x2 , RIGHT - x1 History of hand surgery RIGHT History of lung surgery collapsed lung - LEFT (approx 10 years ago- no residual breathing issues) History of surgery Marsupialization of left submandibular duct with removal of left sialolith- 11/11/20 History of tonsillectomy Status post wisdom tooth extraction Past Anesthesia History No Hx of Anesthesia Complications and No Family Hx of Anesthesia Complications History of PONV No Hx of PONV and No Hx of Motion Sickness Social History Smoking Status: Current every day smoker tobacco type: cigarettes Smoking cigarettes per day: 6-8 Hx Alcohol Use: Yes Alcohol type: beer alcohol intake frequency: holidays/special occasions only Hx Substance Use: No substance use type: does not use Physical Exam Vital Signs Last Vital Signs Temp 36.3 C L 08/21/21 22:26 Pulse 54 L 08/21/21 22:26 Resp 18 08/21/21 22:26 BP 116/70 08/21/21 22:26 Pulse Ox 95 08/21/21 22:26 Testing Laboratory Results 08/20/21 21:00 08/20/21 21:00 08/20/21 21:21 Aerobic Blood Culture - Preliminary Blood No growth in Aerobic bottle after 24 hours. Anaerobic Blood Culture - Preliminary No growth in Anaerobic bottle after 24 hours. 08/20/21 21:00 Aerobic Blood Culture - Preliminary Blood No growth in Aerobic bottle after 24 hours. Anaerobic Blood Culture - Preliminary No growth in Anaerobic bottle after 24 hours.
[2021-08-22 07:18] LABS: Hematocrit (blood only) 42.3 % (42-52); Hemoglobin 14.4 g/dL (14.0-18.0); Mean Corpuscular Hemoglobin 30.3 pg (25-34); Mean Corpuscular Volume 88.9 fL (80-100); Mean Platelet Volume 10.3 fL (7.4-10.4); Platelet Count 220 K/uL (130-400); RDW Coefficient of Variation 13.2 % (11.5-14.5); RDW Standard Deviation 43.2 fL (36.4-46.3); Red Blood Count 4.76 M/uL (4.7-6.1); White Blood Count 9.24 K/uL (4.8-10.8)
[2021-08-22] MEDS: VANCOMYCIN HCL 1,250 MG in SODIUM CHLORIDE 0.9% 250 ML IV SCH ×2 (07:32→20:48)
[2021-08-22 07:44] LABS: BUN Creatinine Ratio 18.2 (10-20); Calcium 9.2 mg/dl (8.5-10.1); Creatinine Clr Calc Pharmacy 110.8 ml/min; Est GFR (African American) 94.1 ml/min; Est GFR (Non-African American) 81.2 ml/min; Potassium 4.3 mmol/L (3.5-5.1)
--- NOTE | 2021-08-22 07:48 | Orthopedic Consultation ---
Date of Consultation August 22, 2021 Assessment & Plan (1) Osteomyelitis of fourth toe of left foot: Discussed findings with patient as well as options of continued antibiotics versus I&D L 4th toe and continued antibiotics. Also discussed that he may require multiple surgeries and possibly amputation if infection were to worsen as it is difficult to remove infection from the bone. He would like to proceed with surgery. The risks and benefits were discussed and he signed the informed consent. Continue NPO. Continue antibiotics, will adjust based on cultures. Will obtain ID consult. Will be allowed WBAT through his heel in post-op shoe. Present on Admission?: Yes History of Present Illness Reason for Consultation: Left 4th toe Osteomyelitis Requesting Physician: Margot Prater MD Attending Physician: Jareth Hogan DO History of Present Illness Yossi is a pleasant 46 year old male with 1 month history of painful left 4th toe after martial arts injury. Has a history of multiple foot surgeries by Dr. East for Bunion and hammer toes. He was admitted after x-rays and MRI were concerning for osteomyelitis. He was started on Vancomycin and cefepime. He did not want to see Dr. East and I was consulted as I was on-call. Denies any drainage. 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 with dam tender assistant Sensorineural hearing loss (SNHL) of left ear with unrestricted hearing of right ear Surgical History History of appendectomy History of foot surgery LEFT - x2 , RIGHT - x1 History of hand surgery RIGHT History of lung surgery collapsed lung - LEFT (approx 10 years ago- no residual breathing issues) History of surgery Marsupialization of left submandibular duct with removal of left sialolith- 11/11/20 History of tonsillectomy Status post wisdom tooth extraction Family History Mother Depression Heart disease Other No family history of allergies No family history of bleeding disorder Denies family history of Hearing loss Cancer Hypertension Stroke Asthma Social History Smoking Status: Current every day smoker Tobacco Type: Cigarettes Years Smoked: 20; Cigarettes Per Day: 6-8; Second Hand Exposure: No; Hx Alcohol Use: Yes Alcohol type: beer Hx Substance Use: No Preferred Language: Jamaican Communication Ability: Effective Visual Impairment: No Limitations Settlement Technician Required: No Beliefs That Will Affect Care: None marital status: Single Current Living Situation: Alone Current Living Situation Comment: lives alone but does stay with his step father at times current occupational status: disabled Other Information That Helps Us Care for You: No Feels Safe at Home: Yes Safety Concerns: Feels Safe At This Time Physical Activity Frequency: 3-4 Times per Week Assistive Devices: None Review of Systems Review of Systems: All systems reviewed & are unremarkable except as noted in HPI & below Physical Exam Physical Exam: Left foot. Previous incisions are well healed. Only able to move the big toe. Minimal sensation to light touch of the lesser toes. BCR < 2 sec. Small raised area of healing wound less than tip of a pencil eraser. No active drainage. No erythema. Results & Data ([facility]) Vital Signs (Past 12 Hours) Vital Signs Temp Pulse Resp BP Pulse Ox 08/21/21 22:26 36.3 C L 54 L 18 116/70 95 Laboratory Results 08/22/21 08/22/21 Range/Units 06:42 06:42 WBC 9.24 (4.8-10.8) K/uL RBC 4.76 (4.7-6.1) M/uL Hgb 14.4 (14.0-18.0) g/dL Hct 42.3 (42-52) % MCV 88.9 (80-100) fL MCH 30.3 (25-34) pg MCHC 34.0 (32-36) g/dL RDW Std Deviation 43.2 (36.4-46.3) fL RDW Coeff of Fidel 13.2 (11.5-14.5) % Plt Count 220 (130-400) K/uL MPV 10.3 (7.4-10.4) fL Sodium Pending Potassium Pending Chloride Pending Carbon Dioxide Pending Anion Gap Pending BUN Pending Creatinine Pending Est Cr Clr Drug Dosing Pending Est GFR ( Amer) Pending Est GFR (Non-Af Amer) Pending BUN/Creatinine Ratio Pending Glucose Pending Calcium Pending Microbiology 08/20/21 21:21 Aerobic Blood Culture - Preliminary Blood No growth in Aerobic bottle after 24 hours. Anaerobic Blood Culture - Preliminary No growth in Anaerobic bottle after 24 hours. 08/20/21 21:00 Aerobic Blood Culture - Preliminary Blood No growth in Aerobic bottle after 24 hours. Anaerobic Blood Culture - Preliminary No growth in Anaerobic bottle after 24 hours. Diagnostic Findings MR foot LT w/o con HISTORY: 46 years-old Male L 4th toe infection, possible osteomyelitis, subacute pain with soft tissue swelling of the left fourth toe. COMPARISON: Left foot radiographs of same day. TECHNIQUE: Multiplanar and multisequence MRI of the left foot was obtained without the use of IV contrast. FINDINGS: Postoperative changes of the forefoot are noted. Micrometallic artifact from the screws within the first through fourth metatarsal heads and first proximal phalanx limits the study. Extensive focal marrow edema with decreased T1 signal involves the fourth proximal distal phalanges. There is a 9 mm loculated T2 hyperintense cystic structure within the adjacent dorsal soft tissues superficial to the middle phalanx. Mild to moderate marrow edema involves the third middle phalanx with moderate marrow edema involving the second middle phalanx. T1 marrow signal appears preserved within these distributions. Irregularity of the second through fifth interphalangeal joints redemonstrated which may be chronic versus postoperative. Mild marrow edema is also noted involving the fourth metatarsal neck with suggestion of a healing fracture. Mild to moderate soft tissue edema of the forefoot is most pronounced surrounding the third digit. Subcortical cyst ic changes of the second metatarsal head. The Lisfranc ligament is identified and appears intact. The imaged flexor and extensor tendons are unremarkable. IMPRESSION: 1. Findings are suspicious for osteomyelitis involving the fourth middle and distal phalanges. 2. 9 mm loculated T2 hyperintense structure within the dorsal soft tissues is indeterminate. Correlate clinically to exclude a postoperative fluid collection versus ganglion. Abscess considered less likely. 3. Marrow edema within the second and third middle phalanges with preserved T1 marrow signal may be postoperative or represent a reactive osteitis. Early changes of acute osteomyelitis could appear similarly. 4. Chronic postoperative changes as above. 5. Soft tissue edema of the forefoot. XR foot LT min 3V routine CLINICAL HISTORY: L 4th toe, dorsal region, Pain and edema. Pustule in the fourth toe. TECHNIQUE: 3 views of the left foot were obtained. Comparison: None available at the time of this dictation. FINDINGS: There is a lucency in the fourth digit proximal interphalangeal joint with apparent erosion of the proximal and middle phalanges. Surgical screws are seen in multiple metatarsals and the first digit proximal phalanx. Degenerative changes are seen at multiple joints. Soft tissue swelling is seen most prominently in the fourth digit. IMPRESSION: Lucency in the fourth digit interphalangeal joint with proximal and distal erosion concerning for septic arthritis with osteomyelitis.
[2021-08-22] MEDS ORDERED: LIDOCAINE 1%/EPINEPHRINE 1:100,000 50 ML VIAL ONE (09:30)
[2021-08-22] MEDS ORDERED: BUPIVACAINE 0.5 % 5 MG/1 ML MPF 30ML VIAL ONE (09:30)
[2021-08-22] MEDS ORDERED: LABETALOL HCL IV 5 MG/ML 20ML IV PRN (09:37)
[2021-08-22] MEDS ORDERED: ePHEDrine sulfate 50 MG/ML AMP IV PRN (09:37)
[2021-08-22] MEDS ORDERED: PROMETHAZINE HCL 12.5 MG in SODIUM CHLORIDE 0.9% 50 ML IV PRN (09:37)
[2021-08-22] MEDS ORDERED: ATROPINE SULFATE 0.1 MG/ML 10ML SYR IV PRN (09:37)
[2021-08-22] MEDS ORDERED: FLUMAZENIL 0.1 MG/1 ML 10 ML VIAL IV PRN (09:37)
[2021-08-22] MEDS ORDERED: ONDANSETRON INJ 2 MG/ML 2 ML VIAL IV PRN ×2 (09:37→10:24)
[2021-08-22] MEDS ORDERED: NALOXONE HCL 0.4 MG/1 ML VIAL/CARP IV PRN (09:37)
[2021-08-22] MEDS ORDERED: fentaNYL citrate 100 MCG/2 ML VIAL IV PRN (09:37)
[2021-08-22] MEDS ORDERED: HYDROmorphone INJ 1 MG/ML SYRINGE IV PRN (09:37)
[2021-08-22] MEDS ORDERED: PROPOFOL IV EMULSION 10 MG/ML 20 ML VIAL IV ONE ×2 (09:41→09:50)
[2021-08-22] MEDS ORDERED: MIDAZOLAM HCL 1 MG/ML 2ML VIAL ONE ×2 (09:41)
[2021-08-22] MEDS ORDERED: fentaNYL citrate 100 MCG/2 ML VIAL ONE (09:41)
[2021-08-22] MEDS ORDERED: KETAMINE 50 MG/5 ML SYRINGE ONE (09:41)
--- NOTE | 2021-08-22 09:43 | Hospitalist Progress Note ---
Date of Service August 22, 2021 Assessment & Plan (1) Osteomyelitis of fourth toe of left foot: Plan: -Osteomyelitis of fourth toe of left foot/history of foot surgery -X-ray shows septic arthritis with probable osteomyelitis -MRI results showing evidence of osteomyelitis -Patient not likely to have Pseudomonas as a source of osteomyelitis, discontinue cefepime -Continue vancomycin until joint aspiration is performed and cultures can be grown -Orthopedic surgery taken him to the operating room today, ID has been consulted by orthopedic surgery for postsurgical antibiotics. Appreciate recommendations. -Acetaminophen 6-milligrams p.o. every 6 hours as needed mild pain or fever (2) Psoriasis: Plan: On immunosuppressive therapy therapy adalimumab in the outpatient setting Likely contributing to progression of above infection Admission and Anticipated Discharge Date Admission Date: August 21, 2021 Supervising Physician Co-Signing Physician Notes I personally examined the patient and verified all flowers points of history and exam, discussed case, and agree with decision making with Dr toledo feeling ok post op. ortho input greatly appreciated. Vitals noted, in general he is awake and alert pleasant no distress. HEENT normocephalic atraumatic mucous membranes moist. Breathing unlabored no accessory muscle use good effort. Skin shows no rashes no pallor or icterusfoot in a boot now. no erythema tracking up leg Septic arthritis/osteomyelitis fourth toerisks being prior foot surgeries, immune compromise from Humira. s/p OR - await cultures. continue vanco pending ID&S Otherwise as above Subjective Patient seen at bedside this morning. Apparently orthopedic surgery was in just prior to my arrival and discussed having surgery performed this morning. Patient was getting prepped to be taken down to the OR as I was talking to the patient. Continues to not feel any systemic symptoms such as fever, chills, shortness of breath, or chest pain at this time. Review of Systems Review of Systems: All systems reviewed & are unremarkable except as noted in HPI & below Physical Exam Constitutional: WD/WN, vitals as above Eyes: PERRL, conjunctivae normal, anicteric sclerae Neck: trachea midline, no thyromegaly Respiratory: normal respiratory effort, lungs clear to auscultation Cardiovascular: RRR, no murmur, no edema Gastrointestinal (Abdomen): normal bowel sounds, soft, nontender, no hepatosplenomegaly Musculoskeletal: Head/Neck/Chest: normocephalic and head atraumatic Skin: + rash and + lesion Neurologic: moves all extremities Psychiatric: A+Ox3, euthymic affect Results & Data Results & Data ([facility]) Vital Signs (Past 12 Hours) Vital Signs Temp Pulse Resp BP Pulse Ox 08/22/21 07:46 36.4 C L 55 L 16 110/69 97 08/21/21 22:26 36.3 C L 54 L 18 116/70 95
[2021-08-22] MEDS ORDERED: ONDANSETRON INJ 2 MG/ML 2 ML VIAL ONE (09:48)
[2021-08-22] MEDS ORDERED: GLYCOPYRROLATE 0.2 MG/ML VIAL ONE (09:48)
--- NOTE | 2021-08-22 10:19 | Post Operative Brief Note ---
Immediate Post Op Note v1 Date of Surgery August 22, 2021 Pre & Post Diagnosis Operation Date: 08/22/21 08:45 Pre-Op Diagnosis: Left 4th Toe Osteomyelitis Post-Op Diagnosis: Left 4th Toe Osteomyelitis I identified the patient and participated in the time-out.: Yes Procedure Operation Date: 08/22/21 08:45 Actual Procedures p Incision and Drainage Left 4th Toe(Left) - Murtaza Prater MD Surgeon Murtaza Prater MD Mail Reader EMERY Ivory PA-C (No fellow avail) Estimated Blood Loss 2 Findings Consistent with Post-Op Diagnosis Fluids 400 cc Specimens Pathology Specimen Skin & Soft tissue, Left 4th toe Pathology Specimen Intramedullar, Left 4th toe Culture Left 4th toe, deep Culture Left 4th toe, superficial Anesthesia Type MAC Complications none
--- NOTE | 2021-08-22 10:22 | Operative Report ---
Post Operative Report Pre & Post Diagnosis Operation Date: 08/22/21 08:45 Pre-Op Diagnosis: Left 4th Toe Osteomyelitis Post-Op Diagnosis: Left 4th Toe Osteomyelitis I identified the patient and participated in the time-out.: Yes Procedure Operation Date: 08/22/21 08:45 Actual Procedures p Incision and Drainage Left 4th Toe(Left) - Murtaza Prater MD Surgeon Murtaza Prater MD Reformatory Attendant EMERY Ivory PA-C (No fellow avail) Estimated Blood Loss 2 Findings See Below Necrotic skin and soft tissue down to bone and within intramedullary canal. Cortical bone appeared intact. No deborah purulence. Fluids 400 cc Specimens Left 4th toe: 1) Superficial Cultures 2) Deep Cultures 3) Pathology - Skin and soft tissue 4) Pathology - Intramedullary Drains n/a Anesthesia Type MAC Complications none Indications The patient has wound over the dorsum left 4th toe concerning for osteomilitis. The patient understands the risks of surgery, which include but are not limited to: bleeding, infection, re-operation, damage to nerves and arteries, continued pain and need for additional surgery. The patient understands all of these instructions and explanations, all of their questions have been satisfactorily addressed. The patient has elected to proceed with surgery and the informed consent was signed. Description of Procedure EMERY Ivory PA-C is assisting with positioning, retraction, and closure due to fellow not available. Procedure The patient was taken to the Operating Room and placed in the supine position on the operating table. After administered of adequate sedation a multidisciplinary time-out was performed identifying my initials on the left 4th toe as the correct and operative limb. Antibiotics were given earlier this am on the regular schedule. The left leg was prepped and draped in the usual Orthopaedic sterile fashion. A digital nerve block and the skin edges for the planned 2 cm dorsal incision to elipse and excise the wound were injected with a 50:50 mixture of 1% lidocaine and 0.5 % Marcaine with epi for a total of 6 cc. The skin and necrotic tissue down to bone were ellipsed and excised with a scalpel. Any devitalized, necrotic soft tissue was removed with a combination of sharp dissection with the scalpel, curette, and rongeur. Superficial and Deep cultures were also obtained.The intermeduallary canal had fibrinus tissue/necrotic fat that was removed with curret and pickups. The wound was copiously irrigated with 1L normal saline. Following irrigation and debridement there was healthy viable tissue. The skin were closed with 3-0 Prolene. The wound was covered Xeroform, 2 x 2's, sterile Kl;ing, and Coban. The sponge and needle counts were correct. The patient was placed into a post-op shoe POST-OP: Patient will be re-admitted to hospitalist service and continued on IV abiotics which will be adjusted based on cultures by infectious disease. Will remove dressing POD# 2, and asses if any further surgery needed. I attest to the content of the Intraoperative Record and any orders documented therein. Any exceptions are noted below.
--- NOTE | 2021-08-22 10:23 | Operative Report ---
Post Operative Report Pre & Post Diagnosis Operation Date: 08/22/21 08:45 Pre-Op Diagnosis: Left 4th Toe Osteomyelitis Post-Op Diagnosis: Left 4th Toe Osteomyelitis I identified the patient and participated in the time-out.: Yes Procedure Operation Date: 08/22/21 08:45 Actual Procedures p Incision and Drainage Left 4th Toe(Left) - Murtaza Prater MD Surgeon Murtaza Prater MD Build Master EMERY Ivory PA-C (No fellow avail) Estimated Blood Loss 2 Findings Consistent with Post-Op Diagnosis Specimens superficial and deep intramedulary tissue and synovium Description of Procedure I was present during the entire case assisting with positioning, prepping, draping, wound retraction, wound closure and dressing application. No fellow present. Please see Dr. Prater procedure note for specifics. I attest to the content of the Intraoperative Record and any orders documented therein. Any exceptions are noted below.
--- NOTE | 2021-08-22 11:45 | Anesthesiology Progress Note ---
Date of Service August 22, 2021 Anesthesia Post Procedure Vital Signs Vital Signs: Temp Pulse Resp BP Pulse Ox 08/22/21 10:50 36 C L 70 19 113/70 99 08/22/21 10:35 70 19 116/77 99 08/22/21 10:30 76 20 114/74 96 08/22/21 07:46 36.4 C L 55 L 16 110/69 97 08/21/21 22:26 36.3 C L 54 L 18 116/70 95 08/21/21 15:20 36.5 C 55 L 16 107/70 97 08/21/21 13:52 36.5 C 52 L 18 112/69 97 Transfer of Care Handoff Completed per policy Notes Mental Status: alert / awake / arousable Patient Amnestic to Procedure: Yes Nausea / Vomiting: adequately controlled Pain: adequately controlled Airway Patency, RR, SpO2: stable & adequate BP & HR: stable & adequate Hydration State: stable & adequate Anesthetic Complications: no major complications apparent
--- NOTE | 2021-08-22 17:04 | Billing Data ---
Date of Service August 22, 2021 Coding Level of Care Code 64681 Subseq Hosp Care Lvl 3
[2021-08-22] MEDS ORDERED: VANCOMYCIN TROUGH ONE (19:30)
[2021-08-22] MEDS: ACETAMINOPHEN 325 MG TAB PO PRN (23:10)
[2021-08-22] MEDS: oxyCODONE/ACETAMINOPHEN 5mg/325mg TAB PO PRN (23:31)
[2021-08-23] MEDS: oxyCODONE/ACETAMINOPHEN 5mg/325mg TAB PO PRN ×2 (03:29→08:36)
--- NOTE | 2021-08-23 04:01 | Pharmacy Report ---
Pharmacy Vanc AUC Short Note - Date of Service August 23, 2021 - Assessment & Plan Assessment * Mr Dior is a 46 year old M receiving Vancomycin/Cefepime for treatment of septic arthritis/osteomyelitis (fourth toe, L foot). * Pt was taken to the OR yesterday for I&D. Cultures obtained. * Pertinent microbiologic data includes: blood cx negative thus far, intraoperative cx pending * Vanc level was obtained last evening and indicated that therapy was subtherapeutic. Dose adjusted accordingly. * ID has been consulted. Recommendations pending. Plan Vancomycin * AUC/MAHNAZ is the preferred PK/PD target for vancomycin * AUC guided dosing is effective and associated with decreased risk of nephrotoxicity compared to traditional trough targets * Increase Vancomycin [place] 1750mg IV q12h * This regimen is predicted to achieve target AUC/AMHNAZ of 400-600 mg/L.hr and may be associated with an 11% risk of nephrotoxicity * Will check another vanc level in ~2-3 days. Cefepime 2gm IV q8h Pharmacy will continue to follow and will adjust dose/frequency as necessary. Thank you.
[2021-08-23] MEDS: VANCOMYCIN HCL 1,750 MG in SODIUM CHLORIDE 0.9% 500 ML IV SCH ×2 (05:41→18:05)
[2021-08-23] MEDS: ACETAMINOPHEN 325 MG TAB PO PRN (05:46)
[2021-08-23 06:10] LABS: Hematocrit (blood only) 38.5 % (42-52); Hemoglobin 12.8 g/dL (14.0-18.0); Mean Corpuscular Hemoglobin 29.8 pg (25-34); Mean Corpuscular Hgb Conc 33.2 g/dL (32-36); Mean Corpuscular Volume 89.5 fL (80-100); Mean Platelet Volume 10.4 fL (7.4-10.4); Platelet Count 208 K/uL (130-400); RDW Coefficient of Variation 13.2 % (11.5-14.5); RDW Standard Deviation 43.5 fL (36.4-46.3); White Blood Count 9.24 K/uL (4.8-10.8)
[2021-08-23 06:27] LABS: Creatinine Clr Calc Pharmacy 126.9 ml/min; Est GFR (Non-African American) 95.7 ml/min; Potassium 4.3 mmol/L (3.5-5.1)
--- NOTE | 2021-08-23 09:37 | Orthopedic Progress Note ---
Date of Service August 23, 2021 Assessment & Plan (1) Osteomyelitis of fourth toe of left foot: Plan: Post op Day 1 s/p left 4th toe I&D Keep dressing in place Use post op shoe when ambulating Cont PO pain medication Cont IV ABX previously ordered WBAT Will keep inhouse at least until tomorrow to reassess wound. ID consult pending Cultures pending, Will obtain ESR & CRP with tomorrow's am labs and should be obtained weekly with CDC. continue care per primary service. Admission and Anticipated Discharge Date Admission Date: August 21, 2021 Supervising Physician Co-Signing Physician Notes I, Dr. Prater, saw and examined the patient and discussed the management with my PA. I reviewed my PAs note and agree with the documented findings and the plan of care I developed. Subjective This 46 yo M is seen this AM day 1 s/p left 4th toe irrigation and debridement. He was walking in the sanchez without his post op shoe when we approached the room. Patient states that he has no pain. He is still receiving IV ABX for the infection. We advised him that cultures are still pending for the specimens that we obtained during his procedure. Patient denies CP, SOB, Nausea, vomiting, fever, chills, sweats, N/T in the left LE. Review of Systems Review of Systems: All systems reviewed & are unremarkable except as noted in Subjective Physical Exam Physical Exam: Left foot: dressing is clean dry and intact and not removed. Cap refill is <2 seconds. Patient is able to detect light sensation to touch over the pad of his 4th digit. No drainage. NV intact. Results & Data ([facility]) Vital Signs (Past 12 Hours) Vital Signs Temp Pulse Resp BP BP Pulse Ox 08/23/21 07:37 36.3 C L 44 L 16 105/64 96 08/23/21 03:22 36.4 C L 51 L 16 98/59 L 96 08/22/21 23:28 36.4 C L 50 L 16 145/79 H 95 Laboratory Results Microbiology 08/20/21 21:21 Aerobic Blood Culture - Preliminary Blood No growth in Aerobic bottle after 48 hours. Anaerobic Blood Culture - Preliminary No growth in Anaerobic bottle after 48 hours. 08/20/21 21:00 Aerobic Blood Culture - Preliminary Blood No growth in Aerobic bottle after 48 hours. Anaerobic Blood Culture - Preliminary No growth in Anaerobic bottle after 48 hours. 08/22/21 Unknown Gram Stain - Final Toe,Right Fourth 08/22/21 Unknown Gram Stain - Final Toe,Right Fourth 08/22/21 Unknown Gram Stain - Final Toe,Left Fourth Diagnostic Findings Laboratory Results WBC 9.24 K/uL (4.8-10.8) 08/23/21 05:45 RBC 4.30 M/uL (4.7-6.1) L 08/23/21 05:45 Hgb 12.8 g/dL (14.0-18.0) L 08/23/21 05:45 Hct 38.5 % (42-52) L 08/23/21 05:45 MCV 89.5 fL (80-100) 08/23/21 05:45 MCH 29.8 pg (25-34) 08/23/21 05:45 MCHC 33.2 g/dL (32-36) 08/23/21 05:45 RDW Std Deviation 43.5 fL (36.4-46.3) 08/23/21 05:45 RDW Coeff of Fidel 13.2 % (11.5-14.5) 08/23/21 05:45 Plt Count 208 K/uL (130-400) 08/23/21 05:45 MPV 10.4 fL (7.4-10.4) 08/23/21 05:45 Immature Gran % (Auto) 0.2 % 08/20/21 21:00 Neut % (Auto) 45.6 % 08/20/21 21:00 Lymph % (Auto) 44.3 % 08/20/21 21:00 [place] % (Auto) 8.1 % 08/20/21 21:00 Eos % (Auto) 1.7 % 08/20/21 21:00 Baso % (Auto) 0.1 % 08/20/21 21:00 Neut # (Auto) 4.62 K/uL (1.4-6.5) 08/20/21 21:00 Lymph # (Auto) 4.49 K/uL (1.2-3.4) H 08/20/21 21:00 [place] # (Auto) 0.82 K/uL (0.11-0.59) H 08/20/21 21:00 Eos # (Auto) 0.17 K/uL (0-0.5) 08/20/21 21:00 Baso # (Auto) 0.01 K/uL (0-0.2) 08/20/21 21:00 Immature Gran # (Auto) 0.02 K/uL (0.00-0.02) 08/20/21 21:00 ESR 8 mm/hr (0-15) 08/20/21 21:00 Sodium 137 mmol/L (136-145) 08/23/21 05:45 Potassium 4.3 mmol/L (3.5-5.1) 08/23/21 05:45 Chloride 103 mmol/L (98-107) 08/23/21 05:45 Carbon Dioxide 30 mmol/L (21-32) 08/23/21 05:45 Anion Gap 4 (3-11) 08/23/21 05:45 BUN 23 mg/dl (6-23) 08/23/21 05:45 Creatinine 0.96 mg/dl (0.6-1.4) 08/23/21 05:45 Est Cr Clr Drug Dosing 126.9 ml/min 08/23/21 05:45 Est GFR ( Amer) 111.0 ml/min 08/23/21 05:45 Est GFR (Non-Af Amer) 95.7 ml/min 08/23/21 05:45 BUN/Creatinine Ratio 24.0 (10-20) H 08/23/21 05:45 Glucose 102 mg/dl (70-99(Fasting)) H 08/23/21 05:45 Lactate 0.6 mmol/L (0.4-2.0) 08/20/21 21:00 Calcium 9.0 mg/dl (8.5-10.1) 08/23/21 05:45 Total Bilirubin 0.4 mg/dl (0.2-1.0) 08/20/21 21:00 AST 18 U/L (13-39) 08/20/21 21:00 ALT 16 U/L (7-52) 08/20/21 21:00 Alkaline Phosphatase 63 U/L (34-104) 08/20/21 21:00 C-Reactive Protein < 0.50 mg/dl (0-0.5) 08/20/21 21:00 Total Protein 7.2 gm/dl (6.0-8.3) 08/20/21 21:00 Albumin 4.7 gm/dl (3.4-5.0) 08/20/21 21:00 Globulin 2.5 gm/dl (2.5-4.0) 08/20/21 21:00 Albumin/Globulin Ratio 1.9 (0.9-2) 08/20/21 21:00 Procalcitonin < 0.05 ng/ml (0-0.5) 08/20/21 21:00 Vancomycin Trough 8.0 mcg/ml (10-20) L 08/22/21 19:19 SARS-CoV-2, RNA, NAAT NEGATIVE (NEGATIVE) 08/20/21 Unknown Impressions Foot X-Ray 08/20/21 20:02 XR foot LT min 3V routine CLINICAL HISTORY: L 4th toe, dorsal region, Pain and edema. Pustule in the fourth toe. TECHNIQUE: 3 views of the left foot were obtained. Comparison: None available at the time of this dictation. FINDINGS: There is a lucency in the fourth digit proximal interphalangeal joint with apparent erosion of the proximal and middle phalanges. Surgical screws are seen in multiple metatarsals and the first digit proximal phalanx. Degenerative changes are seen at multiple joints. Soft tissue swelling is seen most prominently in the fourth digit. IMPRESSION: Lucency in the fourth digit interphalangeal joint with proximal and distal erosion concerning for septic arthritis with osteomyelitis. ACT 112: Negative or not required by law. Electronically signed by: Redd Giron M.D. 08/20/2021 8:25 PM Foot MRI 08/20/21 21:06 MR foot LT w/o con HISTORY: 46 years-old Male L 4th toe infection, possible osteomyelitis, subacute pain with soft tissue swelling of the left fourth toe. COMPARISON: Left foot radiographs of same day. TECHNIQUE: Multiplanar and multisequence MRI of the left foot was obtained without the use of IV contrast. FINDINGS: Postoperative changes of the forefoot are noted. Micrometallic artifact from the screws within the first through fourth metatarsal heads and first proximal phalanx limits the study. Extensive focal marrow edema with decreased T1 signal involves the fourth proximal distal phalanges. There is a 9 mm loculated T2 hyperintense cystic structure within the adjacent dorsal soft tissues superficial to the middle phalanx. Mild to moderate marrow edema involves the third middle phalanx with moderate marrow edema involving the second middle phalanx. T1 marrow signal appears preserved within these distributions. Irregularity of the second through fifth interphalangeal joints redemonstrated which may be chronic versus postoperative. Mild marrow edema is also noted involving the fourth metatarsal n raysa with suggestion of a healing fracture. Mild to moderate soft tissue edema of the forefoot is most pronounced surrounding the third digit. Subcortical cystic changes of the second metatarsal head. The Lisfranc ligament is identified and appears intact. The imaged flexor and extensor tendons are unremarkable. IMPRESSION: 1. Findings are suspicious for osteomyelitis involving the fourth middle and distal phalanges. 2. 9 mm loculated T2 hyperintense structure within the dorsal soft tissues is indeterminate. Correlate clinically to exclude a postoperative fluid collection versus ganglion. Abscess considered less likely. 3. Marrow edema within the second and third middle phalanges with preserved T1 marrow signal may be postoperative or represent a reactive osteitis. Early changes of acute osteomyelitis could appear similarly. 4. Chronic postoperative changes as above. 5. Soft tissue edema of the forefoot. ACT 112: Negative or not required by law. The above report was generated using voice recognition software. It may contain grammatical, syntax or spelling errors. Dictated: 08/21/2021 8:19 AM Transcribed: 08/21/2021 9:25 AM Emily [id number] [email or web address] Electronically signed by: Mike Ferrera M.D. 08/21/2021 11:34 AM
[2021-08-23] MEDS ORDERED: oxyCODONE/ACETAMINOPHEN 5mg/325mg TAB PO PRN (09:44)
[2021-08-23] MEDS ORDERED: ACETAMINOPHEN 325 MG TAB PO PRN (09:44)
--- NOTE | 2021-08-23 09:45 | Hospitalist Progress Note ---
Date of Service August 23, 2021 Assessment & Plan (1) Osteomyelitis of fourth toe of left foot: Plan: -Osteomyelitis of fourth toe of left foot/history of foot surgery, post-op day 1 s/p I&D of left 4th digit -Ortho recommending pt stay another night -X-ray shows septic arthritis with probable osteomyelitis -MRI results showing evidence of osteomyelitis -Patient not likely to have Pseudomonas as a source of osteomyelitis, discontinued cefepime 08/21 -Continue vancomycin until joint aspiration is performed and cultures can be grown -ID has been consulted by orthopedic surgery for postsurgical antibiotics. Appreciate recommendations. -Acetaminophen 6-milligrams p.o. every 4 hours as needed mild pain or fever and oxycodone every 4 hours as needed for pain scale 6 through 10. (2) Psoriasis: Plan: On immunosuppressive therapy therapy adalimumab in the outpatient setting Likely contributing to progression of above infection Admission and Anticipated Discharge Date Admission Date: August 21, 2021 Supervising Physician Co-Signing Physician Notes I personally examined the patient and verified all flowers points of history and exam, discussed case, and agree with decision making with Dr toledo feeling ok post op. ortho input greatly appreciated. Only concern today really is about going homehe notes he would probably prefer to get IV antibiotics at [facility] rather than at home. Also notes he has a little psoriatic plaque around his umbilicus, otherwise his psoriasis is doing well. Wonders about his Humira right now. Vitals noted, in general he is awake and alert pleasant no distress. HEENT normocephalic atraumatic mucous membranes moist. Breathing unlabored no accessory muscle use good effort. Small salmon-pink plaque in his umbilicus. Septic arthritis/osteomyelitis fourth toerisks being prior foot surgeries, immune compromise from Humira. s/p OR - await cultures. continue vanco pending ID&Sif cultures do not grow anything, probably obligated to treat as MRSA. Tomorrow anticipate PICC line and setting up [facility], probable discharge Psoriasis- hold humira for now w active infection - notes that he sees derm for this - discussed conventionally we hold immune suppressant meds during active infection - for now would plan on that -- but certainly he can also discuss further w his derm. in the meantime will utilize topical steroids for psoriatic plaques Otherwise as above Subjective Patient seen at bedside this morning. Patient is postop day 1 from incision and drainage of left fourth digit osteomyelitis. Cultures were taken yesterday. Patient seems to be doing well this morning. Does have some residual pain but thinks it is pretty well under control on her current pain regimen. Has no other complaints at this time. Feels comfortable. Review of Systems Review of Systems: All systems reviewed & are unremarkable except as noted in HPI & below Physical Exam Constitutional: WD/WN, vitals as above Eyes: PERRL, conjunctivae normal, anicteric sclerae Neck: trachea midline, no thyromegaly Respiratory: normal respiratory effort, lungs clear to auscultation Cardiovascular: RRR, no murmur, no edema Gastrointestinal (Abdomen): normal bowel sounds, soft, nontender, no hepatosplenomegaly Musculoskeletal: Head/Neck/Chest: normocephalic and head atraumatic Skin: Wrapped foot obscuring examination of left fourth digit. Neurologic: moves all extremities Psychiatric: A+Ox3, euthymic affect Results & Data Results & Data ([facility]) Vital Signs (Past 12 Hours) Vital Signs Temp Pulse Resp BP BP Pulse Ox 08/23/21 07:37 36.3 C L 44 L 16 105/64 96 08/23/21 03:22 36.4 C L 51 L 16 98/59 L 96 08/22/21 23:28 36.4 C L 50 L 16 145/79 H 95
[2021-08-23] MEDS ORDERED: TRIAMCINOLONE ACET 0.1% CR 80 GM TUBE EXT PRN (16:39)
--- NOTE | 2021-08-23 16:46 | Billing Data ---
Date of Service August 23, 2021 Coding Level of Care Code 67600 Subseq Hosp Care Lvl 3
[2021-08-24] MEDS ORDERED: VANCOMYCIN TROUGH ONE (05:30)
[2021-08-24] MEDS: VANCOMYCIN HCL 1,750 MG in SODIUM CHLORIDE 0.9% 500 ML IV SCH ×2 (06:32→17:31)
[2021-08-24 06:40] LABS: Hematocrit (blood only) 39.9 % (42-52); Hemoglobin 13.4 g/dL (14.0-18.0); Mean Corpuscular Hgb Conc 33.6 g/dL (32-36); Mean Corpuscular Volume 89.3 fL (80-100); Mean Platelet Volume 10.4 fL (7.4-10.4); Platelet Count 223 K/uL (130-400); RDW Coefficient of Variation 13.2 % (11.5-14.5); RDW Standard Deviation 43.1 fL (36.4-46.3); Red Blood Count 4.47 M/uL (4.7-6.1); White Blood Count 8.86 K/uL (4.8-10.8)
[2021-08-24 07:01] LABS: Anion Gap 5 (3-11); BUN Creatinine Ratio 19.1 (10-20); Blood Urea Nitrogen 18 mg/dl (6-23); C Reactive Protein < 0.50 mg/dl (0-0.5); Calcium 9.2 mg/dl (8.5-10.1); Carbon Dioxide 29 mmol/L (21-32); Chloride 105 mmol/L (98-107); Creatinine Clr Calc Pharmacy 129.6 ml/min; Est GFR (African American) 113.8 ml/min; Est GFR (Non-African American) 98.2 ml/min; Glucose 99 mg/dl (70-99(Fasting)); Potassium 4.1 mmol/L (3.5-5.1); Sodium 139 mmol/L (136-145)
--- NOTE | 2021-08-24 13:34 | Orthopedic Progress Note ---
Date of Service August 24, 2021 Assessment & Plan (1) Osteomyelitis of fourth toe of left foot: Plan: Post op Day 2 s/p left 4th toe I&D due to MSSA infection Dressing changed, may change daily as needed. WBAT use post op shoe when ambulating Cont PO pain medication Cont IV ABX, awaiting ID input ID consult pending Blood Cx from 08/20/2021 No growth Obtained weekly CBC, ESR, & CRP. Continue care per primary service. Able to d/c home once Abx determined and any arrangements needed if IV Abx continued Admission and Anticipated Discharge Date Admission Date: August 21, 2021 Subjective Doing fairly well. Review of Systems Review of Systems: All systems reviewed & are unremarkable except as noted in HPI & below Physical Exam Physical Exam: Left foot/ 4th toe: Incision healing nicely with no evidence of infection. No drainage. No erythema. Neurovascularly unchanged: Only able to move the big toe. Minimal sensation to light touch of the lesser toes. BCR < 2 sec. No Results & Data ([facility]) Vital Signs (Past 12 Hours) Vital Signs Temp Pulse Resp BP Pulse Ox 08/24/21 07:40 36.5 C 54 L 16 111/71 97 Laboratory Results Microbiology 08/22/21 Unknown Gram Stain - Final Toe,Right Fourth Deep Wound Culture - Final Staphylococcus aureus 08/22/21 Unknown Gram Stain - Final Toe,Left Fourth Aerobic and Anaerobic Culture - Preliminary Staphylococcus aureus 08/22/21 Unknown Gram Stain - Final Toe,Right Fourth Aerobic and Anaerobic Culture - Preliminary Staphylococcus aureus Spec: [id number] Collected: 08/22/21-UNK Received: 08/22/21-[address]: Murtaza Prater MD Copy To: Reji Morales MD Source: Toe,Left Fourth OV Order: Ordered: Aer/Cally Cult/Sm Comments: CULTURE #1 Procedure Result Verified Site Gram Stain Final 08/22/21-1357 Gram Stain Result Rare WBCs Seen Rare Epithelial Cells No Organisms Seen Aero/Cally Cult Preliminary 08/24/21-1323 Organism 1 Staphylococcus aureus Quantity Few Sens Sensitivities to Follow No Anaerobes Isolated No Anaerobes Isolated S aureus RX M.I.C. --- --------- Clindamycin S <=0.5 Daptomycin S <=0.5 Erythromycin S <=0.5 Oxacillin S 0.5 Tetracycline S <=4 Trimeth/Sulfa S <=0.5/9.5 Vancomycin S 2 S = SENSITIVE I = INTERMEDIATE R = RESISTANT Diagnostic Findings Laboratory Results WBC 8.86 K/uL (4.8-10.8) 08/24/21 06:27 RBC 4.47 M/uL (4.7-6.1) L 08/24/21 06:27 Hgb 13.4 g/dL (14.0-18.0) L 08/24/21 06:27 Hct 39.9 % (42-52) L 08/24/21 06:27 MCV 89.3 fL (80-100) 08/24/21 06: MCH 30.0 pg (25-34) 08/24/21 06: MCHC 33.6 g/dL (32-36) 08/24/21 06:27 RDW Std Deviation 43.1 fL (36.4-46.3) 08/24/21 06:27 RDW Coeff of Fidel 13.2 % (11.5-14.5) 08/24/21 06:27 Plt Count 223 K/uL (130-400) 08/24/21 06:27 MPV 10.4 fL (7.4-10.4) 08/24/21 06:27 Immature Gran % (Auto) 0.2 % 08/20/21 21:00 Neut % (Auto) 45.6 % 08/20/21 21:00 Lymph % (Auto) 44.3 % 08/20/21 21:00 [place] % (Auto) 8.1 % 08/20/21 21:00 Eos % (Auto) 1.7 % 08/20/21 21:00 Baso % (Auto) 0.1 % 08/20/21 21:00 Neut # (Auto) 4.62 K/uL (1.4-6.5) 08/20/21 21:00 Lymph # (Auto) 4.49 K/uL (1.2-3.4) H 08/20/21 21:00 [place] # (Auto) 0.82 K/uL (0.11-0.59) H 08/20/21 21:00 Eos # (Auto) 0.17 K/uL (0-0.5) 08/20/21 21:00 Baso # (Auto) 0.01 K/uL (0-0.2) 08/20/21 21:00 Immature Gran # (Auto) 0.02 K/uL (0.00-0.02) 08/20/21 21:00 ESR 2 mm/hr (0-15) 08/24/21 06:27 Sodium 139 mmol/L (136-145) 08/24/21 06:27 Potassium 4.1 mmol/L (3.5-5.1) 08/24/21 06:27 Chloride 105 mmol/L (98-107) 08/24/21 06:27 Carbon Dioxide 29 mmol/L (21-32) 08/24/21 06:27 Anion Gap 5 (3-11) 08/24/21 06:27 BUN 18 mg/dl (6-23) 08/24/21 06:27 Creatinine 0.94 mg/dl (0.6-1.4) 08/24/21 06:27 Est Cr Clr Drug Dosing 129.6 ml/min 08/24/21 06:27 Est GFR ( Amer) 113.8 ml/min 08/24/21 06:27 Est GFR (Non-Af Amer) 98.2 ml/min 08/24/21 06:27 BUN/Creatinine Ratio 19.1 (10-20) 08/24/21 06:27 Glucose 99 mg/dl (70-99(Fasting)) 08/24/21 06:27 Lactate 0.6 mmol/L (0.4-2.0) 08/20/21 21:00 Calcium 9.2 mg/dl (8.5-10.1) 08/24/21 06:27 Total Bilirubin 0.4 mg/dl (0.2-1.0) 08/20/21 21:00 AST 18 U/L (13-39) 08/20/21 21:00 ALT 16 U/L (7-52) 08/20/21 21:00 Alkaline Phosphatase 63 U/L (34-104) 08/20/21 21:00 C-Reactive Protein < 0.50 mg/dl (0-0.5) 08/24/21 06:27 Total Protein 7.2 gm/dl (6.0-8.3) 08/20/21 21:00 Albumin 4.7 gm/dl (3.4-5.0) 08/20/21 21:00 Globulin 2.5 gm/dl (2.5-4.0) 08/20/21 21:00 Albumin/Globulin Ratio 1.9 (0.9-2) 08/20/21 21:00 Procalcitonin < 0.05 ng/ml (0-0.5) 08/20/21 21:00 Vancomycin Trough 11.3 mcg/ml (10-20) 08/24/21 06:27 SARS-CoV-2, RNA, NAAT NEGATIVE (NEGATIVE) 08/20/21 Unknown
--- NOTE | 2021-08-24 15:29 | Hospitalist Progress Note ---
Date of Service August 24, 2021 Assessment & Plan (1) Osteomyelitis of fourth toe of left foot: Plan: -Osteomyelitis of fourth toe of left foot/history of foot surgery, post-op day 2 s/p I&D of left 4th digit -I&D culture grew back MSSA. Could potentially switch vancomycin to Rocephin 2 g IV every 24 hours, but awaiting infectious disease consult -X-ray shows septic arthritis with probable osteomyelitis -MRI results showing evidence of osteomyelitis -Patient not likely to have Pseudomonas as a source of osteomyelitis, discontinued cefepime 08/21 -ID has been consulted by orthopedic surgery for postsurgical antibiotics. Appreciate recommendations. -Acetaminophen 6-milligrams p.o. every 4 hours as needed mild pain or fever and oxycodone every 4 hours as needed for pain scale 6 through 10. (2) Psoriasis: Plan: On immunosuppressive therapy therapy adalimumab in the outpatient setting -Hold adalimumab during active infection, while on antibiotic therapy -Likely contributing to progression of above infection Admission and Anticipated Discharge Date Admission Date: August 21, 2021 Supervising Physician Co-Signing Physician Notes I also saw the patient and confirmed flowers portions of the history and physical examination. I agree with the impression and plan as noted in the resident documentation. Exam 112/70, 55, 16, 36.6, 96% room air Alert and oriented. No distress. No complaints. Heart regular rate and rhythm Lungs clear throughout with nonlabored respirations Data Hemoglobin 13.4, platelet count 223 Sodium 139, potassium 4.1, BUN 18, creatinine 0.94. CRP less than 0.50 Osteomyelitis of fourth toe of left foot Post op Day 2 s/p left 4th toe I&D due to MSSA infection Await ID consult Psoriasis Hold Humira insetting of active infection Usually we hold immune suppressant medications during active infection Utilize topical steroids for psoriatic plaques Otherwise as above Subjective Patient seen at bedside this morning. No acute events reported overnight. Difficulty in establishing discharge planning without infectious disease consult at this time. Patient comfortable at this time very minimal pain in his left foot. Asking about ability to go home. Otherwise no complaints this morning. Review of Systems Review of Systems: All systems reviewed & are unremarkable except as noted in HPI & below Physical Exam Constitutional: WD/WN, vitals as above Eyes: PERRL, conjunctivae normal, anicteric sclerae Neck: trachea midline, no thyromegaly Respiratory: normal respiratory effort, lungs clear to auscultation Cardiovascular: RRR, no murmur, no edema Gastrointestinal (Abdomen): normal bowel sounds, soft, nontender, no hepatosplenomegaly Musculoskeletal: Head/Neck/Chest: normocephalic and head atraumatic Skin: + rash and + lesion Neurologic: moves all extremities Psychiatric: A+Ox3, euthymic affect Results & Data Results & Data ([facility]) Vital Signs (Past 12 Hours) Vital Signs Temp Pulse Resp BP Pulse Ox 08/24/21 15:01 36.6 C 55 L 16 112/70 96 08/24/21 07:40 36.5 C 54 L 16 111/71 97
[2021-08-25] MEDS: VANCOMYCIN HCL 1,750 MG in SODIUM CHLORIDE 0.9% 500 ML IV SCH (05:44)
[2021-08-25 08:21] LABS: Hematocrit (blood only) 42.6 % (42-52); Hemoglobin 14.2 g/dL (14.0-18.0); Mean Corpuscular Hemoglobin 30.1 pg (25-34); Mean Corpuscular Hgb Conc 33.3 g/dL (32-36); Mean Corpuscular Volume 90.3 fL (80-100); Mean Platelet Volume 10.3 fL (7.4-10.4); Platelet Count 239 K/uL (130-400); Red Blood Count 4.72 M/uL (4.7-6.1); White Blood Count 10.79 K/uL (4.8-10.8)
[2021-08-25 08:53] LABS: BUN Creatinine Ratio 17.7 (10-20); Calcium 9.1 mg/dl (8.5-10.1); Creatinine Clr Calc Pharmacy 126.9 ml/min; Est GFR (Non-African American) 95.7 ml/min; Potassium 3.9 mmol/L (3.5-5.1)
--- NOTE | 2021-08-25 09:51 | Orthopedic Progress Note ---
Date of Service August 25, 2021 Assessment & Plan (1) Osteomyelitis of fourth toe of left foot: Plan: Post op Day 3 s/p left 4th toe I&D due to MSSA infection Dressing changed, may change daily as needed. WBAT use post op shoe when ambulating Cont PO pain medication Cont IV ABX, awaiting ID input ID consult pending Blood Cx from 08/20/2021 No growth Obtained weekly CBC, ESR, & CRP. Continue care per primary service. Able to d/c home once Abx determined and any arrangements needed if IV Abx continued Admission and Anticipated Discharge Date Admission Date: August 21, 2021 Subjective Patient is seen this morning for follow-up of left fourth toe osteomyelitis with irrigation debridement was performed this past Tuesday. Patient states that he discussed either receiving a PICC line or a midline before being discharged. He was advised that he will need to be on IV for several weeks postoperatively. We are still awaiting infectious disease consult to see what antibiotics he will need. Currently he denies chest pain, shortness of breath, fever, chills, sweats, lethargy or numbness or tingling in his left lower extremity. Review of Systems Review of Systems: All systems reviewed & are unremarkable except as noted in Subjective Physical Exam Physical Exam: Left foot: dressing is clean dry and intact and not removed. Cap refill is <2 seconds. Patient is able to detect light sensation to touch over the pad of his 4th digit. No drainage. NV intact. Results & Data ([facility]) Vital Signs (Past 12 Hours) Vital Signs Temp Pulse Resp BP BP Pulse Ox 08/25/21 07:37 36.6 C 64 18 129/80 98 08/24/21 22:57 36.3 C L 56 L 14 128/73 98 Diagnostic Findings Laboratory Results WBC 10.79 K/uL (4.8-10.8) 08/25/21 07:56 RBC 4.72 M/uL (4.7-6.1) 08/25/21 07:56 Hgb 14.2 g/dL (14.0-18.0) 08/25/21 07:56 Hct 42.6 % (42-52) 08/25/21 07:56 MCV 90.3 fL (80-100) 08/25/21 07:56 MCH 30.1 pg (25-34) 08/25/21 07:56 MCHC 33.3 g/dL (32-36) 08/25/21 07:56 RDW Std Deviation 43.0 fL (36.4-46.3) 08/25/21 07:56 RDW Coeff of Fidel 13.0 % (11.5-14.5) 08/25/21 07:56 Plt Count 239 K/uL (130-400) 08/25/21 07:56 MPV 10.3 fL (7.4-10.4) 08/25/21 07:56 Immature Gran % (Auto) 0.2 % 08/20/21 21:00 Neut % (Auto) 45.6 % 08/20/21 21:00 Lymph % (Auto) 44.3 % 08/20/21 21:00 [place] % (Auto) 8.1 % 08/20/21 21:00 Eos % (Auto) 1.7 % 08/20/21 21:00 Baso % (Auto) 0.1 % 08/20/21 21:00 Neut # (Auto) 4.62 K/uL (1.4-6.5) 08/20/21 21:00 Lymph # (Auto) 4.49 K/uL (1.2-3.4) H 08/20/21 21:00 [place] # (Auto) 0.82 K/uL (0.11-0.59) H 08/20/21 21:00 Eos # (Auto) 0.17 K/uL (0-0.5) 08/20/21 21:00 Baso # (Auto) 0.01 K/uL (0-0.2) 08/20/21 21:00 Immature Gran # (Auto) 0.02 K/uL (0.00-0.02) 08/20/21 21:00 ESR 2 mm/hr (0-15) 08/24/21 06:27 Sodium 138 mmol/L (136-145) 08/25/21 07:56 Potassium 3.9 mmol/L (3.5-5.1) 08/25/21 07:56 Chloride 104 mmol/L (98-107) 08/25/21 07:56 Carbon Dioxide 28 mmol/L (21-32) 08/25/21 07:56 Anion Gap 6 (3-11) 08/25/21 07:56 BUN 17 mg/dl (6-23) 08/25/21 07:56 Creatinine 0.96 mg/dl (0.6-1.4) 08/25/21 07:56 Est Cr Clr Drug Dosing 126.9 ml/min 08/25/21 07:56 Est GFR ( Amer) 111.0 ml/min 08/25/21 07:56 Est GFR (Non-Af Amer) 95.7 ml/min 08/25/21 07:56 BUN/Creatinine Ratio 17.7 (10-20) 08/25/21 07:56 Glucose 100 mg/dl (70-99(Fasting)) H 08/25/21 07:56 Lactate 0.6 mmol/L (0.4-2.0) 08/20/21 21:00 Calcium 9.1 mg/dl (8.5-10.1) 08/25/21 07:56 Total Bilirubin 0.4 mg/dl (0.2-1.0) 08/20/21 21:00 AST 18 U/L (13-39) 08/20/21 21:00 ALT 16 U/L (7-52) 08/20/21 21:00 Alkaline Phosphatase 63 U/L (34-104) 08/20/21 21:00 C-Reactive Protein < 0.50 mg/dl (0-0.5) 08/24/21 06:27 Total Protein 7.2 gm/dl (6.0-8.3) 08/20/21 21:00 Albumin 4.7 gm/dl (3.4-5.0) 08/20/21 21:00 Globulin 2.5 gm/dl (2.5-4.0) 08/20/21 21:00 Albumin/Globulin Ratio 1.9 (0.9-2) 08/20/21 21:00 Procalcitonin < 0.05 ng/ml (0-0.5) 08/20/21 21:00 Vancomycin Trough 11.3 mcg/ml (10-20) 08/24/21 06:27 SARS-CoV-2, RNA, NAAT NEGATIVE (NEGATIVE) 08/20/21 Unknown Impressions Foot X-Ray 08/20/21 20:02 XR foot LT min 3V routine CLINICAL HISTORY: L 4th toe, dorsal region, Pain and edema. Pustule in the fourth toe. TECHNIQUE: 3 views of the left foot were obtained. Comparison: None available at the time of this dictation. FINDINGS: There is a lucency in the fourth digit proximal interphalangeal joint with apparent erosion of the proximal and middle phalanges. Surgical screws are seen in multiple metatarsals and the first digit proximal phalanx. Degenerative changes are seen at multiple joints. Soft tissue swelling is seen most promin ently in the fourth digit. IMPRESSION: Lucency in the fourth digit interphalangeal joint with proximal and distal erosion concerning for septic arthritis with osteomyelitis. ACT 112: Negative or not required by law. Electronically signed by: Redd Giron M.D. 08/20/2021 8:25 PM Foot MRI 08/20/21 21:06 MR foot LT w/o con HISTORY: 46 years-old Male L 4th toe infection, possible osteomyelitis, subacute pain with soft tissue swelling of the left fourth toe. COMPARISON: Left foot radiographs of same day. TECHNIQUE: Multiplanar and multisequence MRI of the left foot was obtained without the use of IV contrast. FINDINGS: Postoperative changes of the forefoot are noted. Micrometallic artifact from the screws within the first through fourth metatarsal heads and first proximal phalanx limits the study. Extensive focal marrow edema with decreased T1 signal involves the fourth proximal distal phalanges. There is a 9 mm loculated T2 hyperintense cystic structure within the adjacent dorsal soft tissues superficial to the middle phalanx. Mild to moderate marrow edema involves the third middle phalanx with moderate marrow edema involving the second middle phalanx. T1 marrow signal appears preserved within these distributions. Irregularity of the second through fifth interphalangeal joints redemonstrated which may be chronic versus postoperative. Mild marrow edema is also noted involving the fourth metatarsal neck with suggestion of a healing fracture. Mild to moderate soft tissue edema of the forefoot is most pronounced surrounding the third digit. Subcortical cystic changes of the second metatarsal head. The Lisfranc ligament is identified and appears intact. The imaged flexor and extensor tendons are unremarkable. IMPRESSION: 1. Findings are suspicious for osteomyelitis involving the fourth middle and distal phalanges. 2. 9 mm loculated T2 hyperintense structure within the dorsal soft tissues is indeterminate. Correlate clinically to exclude a postoperative fluid collection versus ganglion. Abscess considered less likely. 3. Marrow edema within the second and third middle phalanges with preserved T1 marrow signal may be postoperative or represent a reactive osteitis. Early changes of acute osteomyelitis could appear similarly. 4. Chronic postoperative changes as above. 5. Soft tissue edema of the forefoot. ACT 112: Negative or not required by law. The above report was generated using voice recognition software. It may contain grammatical, syntax or spelling errors. Dictated: 08/21/2021 8:19 AM Transcribed: 08/21/2021 9:25 AM Emily [id number] [email or web address] Electronically signed by: Mike Ferrera M.D. 08/21/2021 11:34 AM
--- NOTE | 2021-08-25 12:35 | Discharge Summary ---
Date of Service August 25, 2021 Admission HPI Per Admitting Provider The patient is a 46-year-old male with a past medical history including SNHL left ear, sialoadenitis of submandibular gland, and psoriasis. He reports having multiple surgeries on his left foot, and over the past month has noted worsening pain over a painful bump on his left fourth toe. X-ray in the emergency department suggested septic arthritis with osteomyelitis. Principal Diagnosis Osteomyelitis of the left fourth digit of foot Discharge Exam Constitutional WD/WN, vitals as above Eyes PERRL, conjunctivae normal, anicteric sclerae Neck trachea midline, no thyromegaly Respiratory normal respiratory effort, lungs clear to auscultation Cardiovascular RRR, no murmur, no edema Gastrointestinal (Abdomen) normal bowel sounds, soft, nontender, no hepatosplenomegaly Musculoskeletal Head/Neck/Chest: normocephalic and head atraumatic Skin + rash and + lesion Neurologic moves all extremities Psychiatric A+Ox3, euthymic affect Discharge Data Allergies Allergy/AdvReac Type Severity Reaction Status Date / Time No Known Drug Allergies Allergy Unknown Verified 04/01/21 13:56 Consultations 08/21/21 00:48 ED Decision to Admit Stat 08/21/21 17:52 Consult Orthopedic Surgery Routine 08/22/21 10:29 Consult Infectious Diseases Routine 08/24/21 12:18 Consult Infectious Diseases Routine Procedures Performed Operation Date: 08/22/21 08:45 Actual Procedures p Incision and Drainage Left 4th Toe(Left) - Murtaza Prater MD Ordered Studies 08/20/21 21:06 MR foot LT w/o con Stat Hospital Course (1) Osteomyelitis of fourth toe of left foot: -Osteomyelitis of fourth toe of left foot/history of foot surgery, post-op day 3 s/p I&D of left 4th digit -I&D culture grew back MSSA. Switch vancomycin to Rocephin 2 g IV daily which will be his outpatient regimen. Continue daily for 6 weeks. -PICC line inserted today, will return daily to [facility] for daily antibiotic infusion -After discharge will receive weekly CBC, BMP, ESR, CRP for evaluation for treatment. -X-ray shows septic arthritis with probable osteomyelitis -MRI results showing evidence of osteomyelitis -Patient not likely to have Pseudomonas as a source of osteomyelitis, discontinued cefepime 08/21, discontinued vancomycin 08/25 -Acetaminophen as needed for pain -Follow-up with primary care provider and Orthopedic surgeon (2) Psoriasis: On immunosuppressive therapy therapy adalimumab in the outpatient setting -Hold adalimumab during active infection, while on antibiotic therapy -Likely contributing to progression of above infection -Sent topical triamcinolone to pharmacy for psoriasis treatment while off of adalimumab Total Time Total Time Spent Total Time Spent (In Minutes): 30 Discharge Plan Discharge Items Patient Disposition: Home - Self-Care Reason For Visit: TOE OSTEOMYELITIS Discharge Diagnosis: Osteomyelitis Condition on Discharge: Good Activity: Per Instructions section Non-emergency contact: Primary Care Provider and Surgeon Call non-emergency contact if: you have any medication questions, your symptoms worsen and your temperature is above 101.5 Follow-up/Referrals: Kalani Woodson MD [Primary Care Provider] - Murtaza Prater MD [Physician] - Diet: Regular Addtl Attending Provider Instructions: You are seen at the hospital regarding concerns for toe pain. While you are here you had imaging that was concerning for osteomyelitis, so an MRI was ordered which did confirm the presence of osteomyelitis in the left fourth toe. While you are here orthopedic surgery was consulted and they performed an incision and drainage and require cultures. You are started on IV antibiotics. Additionally, a PICC line was placed so that you may receive antibiotics via IV in the outpatient setting. Your transition to an antibiotic called ceftriaxone which you will receive 1 IV infusion daily at the [facility] for 6 weeks. These orders have already been sent to the [facility] and you will have this done at 9:30 AM daily. While you are being treated for osteomyelitis, you also have weekly labs done which included a CBC, BMP, CRP, ESR to evaluate your progress in your treatment. If you have worsening pain, develop fevers, nausea, vomiting, shortness of breath please consider coming back to the emergency room as this may be signs of a systemic infection. We also recommend that you do not continue your Humira u ntil the osteomyelitis has resolved and your antibiotic regimen is complete. 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 At this time we do not recommend that you continue doing intensive workouts such as sloane fu but you may walk and do other leisure activities as tolerated. Please follow-up with your primary care carli sara within 1 week of discharge and please follow-up with orthopedic surgeon on September 02, 2021 at 8:15 AM. Is been a pleasure to be a part of your care and we wish you the best in both your health and recovery. Addtl Blending Machine Feeder Provider Instructions: Follow-up at [facility] orth[facility] with Sharon whitt PA-C on September 02, 2021 at 8:15 AM. Continue IV antibiotics per infectious disease Pain control with p.o. medication provided by medicine service Keep dressing on left foot Weightbearing as tolerated with cast shoe With questions contact our clinic at [phone] Pending Studies at Discharge: No Stand-Alone Forms: My [facility], Smoking Cessation Medications and DC Order Prescriptions: New triamcinolone acetonide 0.1 % Cream 1 applic EXT QID PRN (Reason: Psoriasis) Qty: 1 RF: 2 Continued multivitamin Tablet 1 tab PO DAILY RF: 0 Discontinued Humira 40 mg/0.8 mL syringe kit See Rx Instructions subcut .COMPLEX RF: 0 Discharge Orders: Discharge Order (Routine); Ordered 08/25/21 Ordered By: Silvio Teresa Admission Data Admit Date/Time: 08/21/21 17:31 Attending Provider: Erich Russo Admit Provider: Reji Morales Primary Care Provider: Kalani Woodson Other Providers: Reji Morales ; Murtaza Prater ; Reji Pelayo ; Frankie Naik ; Denton Castellanos I. ; Bird Atwood II ; Nenita Pleitez ; Alfredo Finley ; Raheel Alba ; Jareth Hogan Other Interventions: Discharge Summary Assessment (RN) Last Done: 08/25/21 15:34 Supervising Physician Co-Signing Physician Notes Attending attestation Pt seen and examined in concert with Dr. Teresa. In agreement with the documented findings as noted in the resident documentation with any exceptions or additions as noted here. Recovering well without appreciable pain at present. On examination, VS reviewed. S1/S2 nl RRR no MCG. CTAB. Abd NT/ND BS+ve. Dressing 4th toe left C/D/I Osteomyelitis of 4th toe, left foot s/p I&D w/ MSSA - ID consult unavailable at this time. Per pharmacy, transition to IV ceftriaxone to complete course. f/u with ortho Else see resident documentation as noted. Total attending physician time spent with this patient's case on the day of discharge: 35 minutes.
[2021-08-25] MEDS ORDERED: cefTRIAXone SODIUM 2,000 MG in DEXTROSE 5% 50 ML IV SCH (14:00)
== END 2021-08-25 17:49 | disposition home or self-care (01) | DRG 501 ==
LOC: 3N 19:01 → ED 19:01 → SUATTDRO 23:12 → 3N 08-21 00:05 → SUATTDRO 08-21 17:31